=== PATIENT | male | born 1945 | race Caucasian/White ===

== ENCOUNTER → 2019-11-27 10:14 | Outpatient (BNVA) | payer OTHER, SELFPAY | PROVIDERS: Visit Provider Specialist | DX: M25.552 Pain in left hip (principal) | CPT/HCPCS: 73502 ==

== ENCOUNTER 2020-01-19 09:44 | Outpatient (CLI) | payer OTHER, SELFPAY ==
--- NOTE | 2020-01-19 09:51 | MR_ITS ---
WS: [id number] MRI LUMBAR SPINE NONCONTRAST HISTORY: BACK PAIN COMPARISON: None available. TECHNIQUE: Sagittal and axial multisequence imaging is submitted. Mild increase in the cervical lordosis and thoracic kyphosis. Mild straightening of the normal lumbar lordosis. Prior fusion hardware at L5-S1. 5 mm retrolisthesis of L2 and L3. There is very mild anterior wedging with no marrow edema involving L2 and L3. Mild disc desiccation throughout. Most significant at L5-S1. Conus terminates normally at L1. L1-L2: Central disc osteophyte encroaching upon the ventral thecal sac. Osteophytes extend into the f oramen with mild bilateral foraminal stenosis. L2-L3: Diffuse moderate annular disc bulging and osteophytic ridging. Central disc osteophyte complex encroaching upon the ventral thecal sac resulting in mild central, bilateral foraminal subarticular stenosis. L3-L4: Diffuse annular disc bulging with osteophytic ridging and facet arthritis. Disc osteophyte dis ease causing severe LEFT subarticular recess and foraminal stenosis. Complete effacement of fat in th e foramen. There is disc osteophyte encroaching upon the LEFT L4 lateral recess and nerve root. Moder ate narrowing of the RIGHT foramen and central canal. L4-L5: Mild annular disc bulging and osteophytic ridging. Facet joint arthritis with mild bilateral f oraminal narrowing. Large posterior laminectomy defects. Nerve roots are becoming clumped within the periphery of the thecal sac. L5-S1: Mild osteophytic ridging. Hypertrophic bone formation encroaches into the subarticular recesse s and foramina. This is better visualized on the CT performed on the same day. Large posterior armond ctomy defects. LEFT renal cysts. MR/MR lumbar spine wo con* [id number] IMPRESSION: 1. Moderate L3-4 central stenosis with severe LEFT inferior lateral recess, alston barticular and foraminal stenosis due to combination of disc disease, osteophyt es and facet disease. Moderate RIGHT foraminal stenosis. 2. Posterior lumbar fusion at L5-S1 with large laminectomy defects at L4-5 and L5-S1. 3. Hypertrophic bone at L5-S1 causing significant bilateral subarticular and f oraminal stenosis. 4. Moderate bilateral foraminal stenosis at L4-5.
--- NOTE | 2020-01-19 10:30 | CT_ITS ---
WS: [id number] CT LUMBAR SPINE, noncontrast. HISTORY: lumbar stenosis with neurogenic claudication ( M48.062) TECHNIQUE: Contiguous 2.5 mm axial imaging are performed. Sagittal and coronal reformats are submitte d and reviewed. All CT scans at [facility] use at least one of these dose optimization te chniques: automated exposure control; mA and/or kV adjustment per patient size (includes targeted exa ms where dose is matched to clinical indication); or iterative reconstruction. IV contrast: None DLP: 2083.34 mGycm COMPARISON: None available. Straightening of the normal lumbar lordosis. L1 and L2 retrolisthesis by 3 mm. L3 retrolisthesis by 4 .5 mm. Mild chronic anterior wedging of L2 and L3 by 20%. Prior lumbar spine fusion at L5-S1. Laminec jorge defects at L4-5 and L5-S1. Fusion of the bone graft surrounding the facet joints at L4 and L5. L1-2: Diffuse osteophytic ridging. Mild annular disc bulging. Osteophytes encroach upon the ventral t hecal sac. Mild osteophyte encroachment into the lateral recesses. No severe stenosis. L2-3: Diffuse osteophytic ridging with encroachment upon the ventral thecal sac. Flattening of the ve ntral thecal sac with encroachment into the lateral recesses. Mild central and foraminal stenosis. L3-4: Diffuse osteophytic ridging and annular disc bulging. Facet and ligamentum flavum hypertrophy. Moderate central and subarticular recess stenosis. Moderate to severe bilateral foraminal stenosis. L4-5: Diffuse annular disc bulging. Mild foraminal stenosis. L5-S1: Osteophytic ridging and facet arthritis. Osteophytes encroach into the subarticular recesses a nd foramina bilaterally. Part of this bone formation is related to the fusion bone graft. Moderate to severe bilateral foraminal stenosis due to hypertrophic bone formation. Mild atherosclerosis aorta. The entire aorta is not visualized anteriorly. CT/CT lumbar spine wo con* [id number] IMPRESSION: 1. Status post posterior lumbar fusion at L5-S1 with large posterior laminecto my defects at L4-5 and L5-S1. 2. Hypertrophic bone formation with significant encroachment into the lateral recesses, subarticular foramen and foramen at L5-S1. 3. Moderate to severe bilateral foraminal stenosis with moderate central and s ubarticular recess stenosis at L3-4. 4. Mild central and foraminal stenosis at L2-3. 5. Mild chronic anterior compression fractures at L2 and L3 by 20%.
== END 2020-01-19 09:45 | disposition home or self-care (01) ==
PROVIDERS: PCP Nurse Practitioner; Visit Provider Orthopaedic Surgery
DX: M48.062 Spinal stenosis, lumbar region with neurogenic claudication (principal); M54.5 Low back pain; S32.020A Wedge compression fracture of second lumbar vertebra, initial encounter for closed fracture; S32.030A Wedge compression fracture of third lumbar vertebra, initial encounter for closed fracture; X58.XXXA Exposure to other specified factors, initial encounter; M48.061 Spinal stenosis, lumbar region without neurogenic claudication; M96.1 Postlaminectomy syndrome, not elsewhere classified
CPT/HCPCS: 72131; 72148

== ENCOUNTER 2020-02-20 12:27 | Outpatient (CLI) | payer OTHER, MEDICARE, SELFPAY ==
--- NOTE | 2020-02-20 14:30 | USCV_ITS ---
Yomi Julian Age: 74 Gender: M : 1945 Exam Date: 02/20/2020 12:55 Ordering Phys: Evelin Lyon MD ([email or web address]) Technologist: Edgardo Echavarria [place] [facility] [place]: PRE OP BP: 149 / 90 HR: 75 Rhythm: PVCs Technical Quality: Good MEASUREMENTS (Male / Female) Normal Values 2D ECHO LV Diastolic Diameter PLAX 4.9 cm 4.2 - 5.9 / 3.9 - 5.3 cm LV Systolic Diameter PLAX 2.7 cm IVS Diastolic Thickness 0.9 cm 0.6 - 1.0 / 0.6 - 0.9 cm IVS Systolic Thickness 1.5 cm LVPW Diastolic Thickness 1.2 cm 0.6 - 1.0 / 0.6 - 0.9 cm LVPW Systolic Thickness 1.5 cm LVOT Diameter 2.0 cm LV Ejection Fraction 2D Teich 74.7 % LV Ejection Fraction MOD 2C 62.4 % LV Ejection Fraction 2C AL 62.1 % LA Diameter 3.9 cm LA Width 4.0 cm LA Height 5.0 cm RA Width 3.4 cm RA Height 4.6 cm Aorta at Sinotubular Diameter 3.1 cm M-MODE LV Diastolic Diameter MM 5.1 cm 4.2 - 5.9 / 3.9 - 5.3 cm LV Systolic Diameter MM 3.4 cm LV Ejection Fraction MM Teich 61.8 % IVS Diastolic Thickness MM 1.3 cm 0.6 - 1.0 / 0.6 - 0.9 cm IVS Systolic Thickness MM 2.0 cm LVPW Diastolic Thickness MM 1.3 cm 0.6 - 1.0 / 0.6 - 0.9 cm LVPW Systolic Thickness MM 1.8 cm RV Diastolic Diameter MM 1.8 cm Aortic Annulus Diameter 4.1 cm LA Ao Ratio MM 1.0 MV E Point Septal Separation 0.5 cm DOPPLER AV Peak Velocity 126.0 cm/s LVOT Peak Velocity 99.0 cm/s AV Area Cont Eq vti 2.8 cm squared AV Area Cont Eq pk 2.5 cm squared MV Area PHT 5.0 cm squared Mitral E to A Ratio 0.6 MV E' Velocity 33.0 cm/s Mitral E to MV E' Ratio 8.3 Mitral E to LV E' Lateral Ratio 6.5 Mitral E to LV E' Septal Ratio 11.4 TR Peak Velocity 218.3 cm/s TR Peak Gradient 19.1 mmHg TV Peak E Velocity 76.0 cm/s Right Atrial Pressure 3.0 mmHg Pulmonary Artery Systolic Pressu 22.1 mmHg PV Peak Velocity 129.0 cm/s FINDINGS Left Ventricle Normal left ventricular cavity size. Normal left ventricular wall thickness. Normal left ventricular systolic function. Left ventricular ejection fraction is estimated at 60-65 %. No regional wall motion abnormalities. Normal diastolic function. Right Ventricle Normal right ventricular size and systolic function. Right ventricular systolic pressure 30 mmHg. Right Atrium Normal right atrial size. Left Atrium Normal left atrial size. Mitral Valve Mildly thickened mitral valve. No mitral valve stenosis. Trace mitral valve regurgitation. Aortic Valve Aortic valve not well visualized. No aortic valve stenosis. No aortic valve regurgitation. Tricuspid Valve Structurally normal tricuspid valve. Trace tricuspid valve regurgitation. Pulmonic Valve Structurally normal pulmonic valve. No pulmonary valve stenosis. Trace pulmonary valve regurgitation. Pericardium No pericardial effusion. Aorta Normal-sized aortic root. Ascending aorta mildly dilated measured at 38 mm anteroposteriorly. Normal-sized inferior vena cava. CONCLUSIONS 1. Normal left ventricular cavity size, wall thickness and systolic function. Left ventricular ejection fraction is estimated at 60-65%. No regional wall motion abnormalities. Normal diastolic function. 2. Normal right ventricular size and systolic function. 3. Normal pulmonary artery pressure. 4. No significant valvular abnormality. 5. Ascending aorta mildly dilated measured at 38 mm anteroposteriorly. 6. No prior similar studies to compare. Evelin Lyon MD (Electronically Signed) Final Date: 24 February 2020 17:10 S
== END 2020-02-20 12:28 | disposition home or self-care (01) ==
PROVIDERS: PCP Nurse Practitioner; Visit Provider Internal Medicine Cardiovascular Disease
DX: Z01.810 Encounter for preprocedural cardiovascular examination (principal); I77.819 Aortic ectasia, unspecified site; I08.1 Rheumatic disorders of both mitral and tricuspid valves
CPT/HCPCS: 93306

== ENCOUNTER → 2020-04-07 09:08 | Outpatient (BNVA) | payer OTHER, SELFPAY | PROVIDERS: PCP Nurse Practitioner; Visit Provider Orthopaedic Surgery | DX: Z01.812 Encounter for preprocedural laboratory examination (principal); Z20.828 Contact with and (suspected) exposure to other viral communicable diseases | CPT/HCPCS: 87635 ==

== ENCOUNTER → 2020-05-10 09:11 | Outpatient (BNVA) | payer OTHER, SELFPAY | PROVIDERS: PCP Nurse Practitioner; Visit Provider Orthopaedic Surgery | DX: Z01.812 Encounter for preprocedural laboratory examination (principal); M48.062 Spinal stenosis, lumbar region with neurogenic claudication; M54.16 Radiculopathy, lumbar region | CPT/HCPCS: 87635 ==

== ENCOUNTER 2020-05-17 07:09 | Day surgery (SDC) | payer OTHER, SELFPAY ==
[2020-05-14 09:11] VITALS: BMI 27.1
[2020-05-17] VITALS (10 sets, daily range): BP systolic 139–169; BP diastolic 72–89; PULSE 60–111; RESP 12–26; TEMP 36.1–36.6; O2SAT 94–99
--- NOTE | 2020-05-17 | XR_ITS ---
WS: [id number] C-ARM RADIOGRAPHS LUMBAR SPINE; 3 IMAGES HISTORY: Decompression of L3/L4 COMPARISON: None available. Posterior lumbar fusion at L5-S1. Additional marker indicating the posterior L3 vertebral body. XR/XR lumbar spine 2-3V* [id number] IMPRESSION: Decompression surgery at L3-4 and posterior lumbar fusion at L5-S1.
--- NOTE | 2020-05-17 07:29 | SC_ITS ---
Procedure Done: Bilateral L3/4 laminectomy with partial facetectomies 16.8 seconds of fluoroscopic guidance, for a cumulative dose of 11.43 mGy, was provided to Dr. Saez by the radiology department. C-arm images of the lumbar spine were saved for the patient's permanent record. [facility] DIVISIONMiranda
[2020-05-17] MEDS: sodium chloride 0.9% 1,000 ML 30 ML IV (07:54)
[2020-05-17] MEDS: gabapentin 300 mg Capsule PO (07:54)
--- NOTE | 2020-05-17 08:06 | P.HP_ITS ---
Providers/Chief Complaint Primary Care Provider: JUANITO Alonzo Chief Complaint: bilateral decompression of L3/4 62030, [id number] History of Present Illness Yomi Julian is a 74 year old male established of back pain that started in 2007. Patient states he once was able to walk 2 miles a day but can longer do so any more due to pain. He states that injections are a waste of time. Onset: years Duration: years Characteristics: dull ache Severity: 06/26 Location: low back Radiating symptoms: numbness to front of right leg and foot, as well as numbness to left foot Aggravating factors: walking, standing, resting Alleviating factors: rest sleeping Neuro deficits: denies, incontinence of bowel/bladder, saddle anesthesia. Prior tx: injections-did not work, physical therapy Review of Systems ENMT: Denies: enlarged tonsils All/Imm: Denies: acute wheezing Medications/Allergies Home Medications Medication Instructions Recorded Confirmed Last Taken Type aspirin 81 mg tablet,delayed 81 mg PO DAILY 11/27/19 05/17/20 05/12/20 History release ibuprofen 200 mg tablet 200 mg PO Q6H PRN 11/27/19 05/17/20 Unknown History lisinopril 40 mg tablet 40 mg PO DAILY 11/27/19 05/17/20 05/16/20 History amlodipine 5 mg tablet 5 mg PO DAILY #90 tab 04/20/20 05/17/20 05/16/20 Rx hydrochlorothiazide 25 mg tablet 50 mg PO DAILY tab 04/20/20 05/17/20 05/17/20 History Allergies Allergy/AdvReac Type Severity Reaction Status Date / Time No Known Allergies Allergy Verified 05/14/20 09:04 PFSH Acute PFSH: Medical History Low back pain Primary hypertension Surgical History History of back surgery Social History Smoking and tobacco status: never smoked Alcohol intake: never Vitals/I&O/Wt Last Vital Signs Temp 97 F L 05/17/20 07:31 Pulse 111 H 05/17/20 07:31 Resp 18 05/17/20 07:31 BP 152/76 05/17/20 07:31 Pulse Ox 96 05/17/20 07:31 Physical Exam Narrative: EXAM NARRATIVE: EXAM NARRATIVE: CONSTITUTIONAL: This is a normal appearing in no acute distress. PSYCH: The patient is oriented to person, place and time. SKIN: The skin is of normal color and texture. NEURO: Patient is neurovascular!y intact. A&P Additional A&P Information L3/4 stenosis MIS L3/4 decompression Attestations Medical Necessity Statement*: failed conservative therapy Coding Level of Care Code Acute Brand Development Manager for Alex De La Vega
--- NOTE | 2020-05-17 08:14 | W.PM.OPSUD ---
Surgery/Procedure H&P Update DATE OF PROCEDURE: May 17, 2020 DATE H&P PERFORMED: 05/17/20 H&P UPDATE INFORMATION: I have reviewed H&P completed within last 30 days and I have examined patient prior to procedure PREOP DIAGNOSIS: lumbar stenosis PLANNED PROCEDURE: Operation Date: 05/17/20 08:45 Proposed Procedures p bilateral decompression of L3/4 28099, 44646 [id number] M48.062(Not Applicable) - Yeison Saez DO
--- NOTE | 2020-05-17 08:55 | ANES.PREANE2 ---
Pre-Anesthetic Assessment Pre-Anesthetic Assessment: Height/Weight: Height 1.83 m Weight 90.718 kg Temp Pulse Resp BP Pulse Ox 97 F L 111 H 18 152/76 96 05/17/20 07:31 05/17/20 07:31 05/17/20 07:31 05/17/20 07:31 05/17/20 07:31 Preop Diagnosis: lumbar stenosis Proposed Procedure: Operation Date: 05/17/20 08:45 Proposed Procedures p bilateral decompression of L3/4 26563, 82720 40504 [id number] M48.062(Not Applicable) - Yeison Saez DO Familial anesthetic complications: None Was Beta Elvis taken within 24 hours: N/A Last intake: NPO > 8 hrs Social: Social History: No alcohol and No tobacco Comment: former smoker Exam: Pre-Anes Outpt Exam: alert, oriented x 3, clear to auscultation bilaterally and regular rate & rhythm Airway: Cervical ROM: WNL MP: 3 Dentition: Full CV/HEM: CV/HEM: HTN Comments: bradycardia - stopped 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 Anesthetic Plan: ASA status: 2 Anesthesia: General Risk of > 500 ml blood loss (7ml/kg in children): No Meds/Allergies Current Medications: Current Medications Generic Name Dose Route Start Last Admin Trade Name Freq PRN Reason Stop Dose Admin Sodium Chloride 1,000 mls @ 30 ml s/hr 05/17/20 07:30 05/17/20 07:54 Sodium Chloride 0.9% IV 05/18/20 07:29 30 mls/hr .Q24H ANTOINE Administration PFSH Anesthesia PFSH: Medical History Low back pain Primary hypertension Surgical History History of back surgery Social History Smoking and tobacco status: never smoked Alcohol intake: never Data Anesthesia Cardiac Studies: No Data to Display
--- NOTE | 2020-05-17 09:05 | P.PCN_ITS ---
PACU note PACU note: VSS, Good respiratory effort, report to WOOD BUCKER Post-Anesthesia Exam: awake
--- NOTE | 2020-05-17 09:05 | PM.PACU ---
PACU note PACU note: VSS, Good respiratory effort, report to HEEL MOLDER Post-Anesthesia Exam: awake
--- NOTE | 2020-05-17 11:03 | PM.OP ---
Operative Report Date of procedure: May 17, 2020 Pre-op Diagnosis: lumbar stenosis Post-op diagnosis: same Procedure Done: Bilateral L3/4 laminectomy with partial facetectomies Surgeon: Nathalie Durant Anesthesia: General Estimated blood loss (mL): 5 Condition: stable Disposition: PACU Procedure: Patient is brought to the operative suite. After undergoing anesthesia they are placed in the supine position. All areas of impingement are well padded. Patient is then prepped and draped in the normal sterile fashion. A skin incision is made over the L3-4 level. This is confirmed under c-arm guidance. A series of dilators are passed and the tubular retractor is docked on the L3 lamina. A bovie is used to clear the soft tissue off the lamina and the L 3/4 facet joint. A high speed alis is then used to perform the laminectomy and take down the medial aspect of the L 3/4 facet joint. A kerrison rongeure was then used to take down the remaining lamina and smooth the edged of the laminectomy up to the point where the ligamentum flavum attaches. Attention was then brought to the medial aspect of the facet joint. The remaining medial aspect of the superior and inferior aspect of the facet joint were taken down with the kerrison from the pedicle of L3 to L 4. The facet joint had significant hypertrophy. Attention was then brought to the Ligamentum Flavum. The ligament was taken down from the lamina of L3 to L4 and out medially to the remaining facet joint. The ligament was thick. The dura was then exposed. The dura was in good repair. The L3 nerve was then traced with a curette out the L3/4 foramen and found to be adequately decompressed. The L4 nerve was traced with a curette around the L4 pedicle. The lateral recess was opened with a kerrison helping to further decompress the L4 nerve. The tubular retractor was then tilted to the contralateral side. The bovie was used to take down the soft tissue on the spinous process. The high speed alis was used to take down the spinous process and then the contralateral lamina of L3. The kerrison rongeur was used to take down the remaining lamina to the point where the ligamentum flavum attached and the ligamentum flavum was taken down from L3 to L4. The kerrison rongeur was then used to reach across and take down the medial aspect of the contralateral L3/4 facet joint.The currete was used to trace the contralateral L3 nerve out the L3/4 foramen to make sure it was decompressed adequatesly and the L4 was traced around the L4 pedicle. The lateral recess was opened further with the kerrison to ensure the L4 is adequately decompressed. Wound is then irrigated copiously with saline and surgiflo is used to stop any bleeding. The tubular retractor is removed and the wound is closed with vicryl and monocryl suture. Glue is then used to protect the wound. A sterile dressing is then placed. Patient was then placed in the supine position and transferred to the PACU in stable condition.
--- NOTE | 2020-05-17 11:34 | ECG_ITS ---
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 Measurements Intervals [place] Rate: 72 P: 71 ME: 189 QRS: -22 QRSD: 107 T: 86 QT: 415 QTc: 455 Interpretive Statements SINUS RHYTHM BORDERLINE LEFT AXIS DEVIATION [QRS AXIS < -20] NONSPECIFIC ST & T-WAVE ABNORMALITY No previous ECG available for comparison Electronically Signed On 05-17-2020 18:52:43 SLIDE FASTENERS INSPECTOR by Robert Cali M.D. [email or web address] county general [email or web address] Orthopedic Technologiesselect medical cleveland clinic rehabilitation hospital, [id number]
--- NOTE | 2020-05-17 18:05 | ANE.PACU2 ---
Inpatient post-anesthesia follow up: Airway intact: Yes Vital signs: Temperature 97.8 F Pulse Rate 68 Respiratory Rate 18 Blood Pressure 146/72 Pulse Oximetry 97 Oxygen Delivery Me thod Room Air Oxygen Flow Rate 8 Fraction of Inspir ed Oxygen Hydration adequate: Yes Nausea and vomiting: No Pain level: 3 Mental status: Baseline
== END 2020-05-17 12:51 | disposition home or self-care (01) ==
PROVIDERS: PCP Nurse Practitioner; Visit Provider Orthopaedic Surgery
PROC: (CPT 63005; principal; 2020-05-17 08:30)
DX: M48.061 Spinal stenosis, lumbar region without neurogenic claudication (principal); I10 Essential (primary) hypertension; Z87.891 Personal history of nicotine dependence; Z79.82 Long term (current) use of aspirin
CPT/HCPCS: 63047; 72100; 76000; 93005; 96365; J0690; J1100; J2250; J2405; J2704; J2710; J3010; J3490; J7030

== ENCOUNTER 2020-05-18 09:11 | Emergency (ER) | payer OTHER, BC, SELFPAY ==
[2020-05-18 09:15] VITALS: BP 171/100; PULSE 84; RESP 18; TEMP 36.5; O2SAT 99; BMI 27.3
--- NOTE | 2020-05-18 09:32 | W.ED.MALEGU ---
HPI - Male Genitourinary General: Chief complaint: Urogenital-Male Stated complaint: Unable to Urinate Time Seen by Provider: 05/18/20 09:16 History of Present Illness: HPI Narrative: 74-year-old male presents ER with complaints of urinary retention. He had a lumbar laminectomy yesterday and since then states he is not been able to urinate is gotten exquisitely uncomfortable no fever sweats or chills. No other complaints at this time. MD Complaint: other (.Recent surgery.) Onset (ago): hour(s) Duration: constant Location: abdomen Radiation: abdomen Severity: severe Quality: aching Relieving factors: none Exacerbating factors: palpation and movement Associated symptoms: Reports urinary retention; Deny discharge, dysuria, fevers/chills, hematuria, nausea, rash, swelling, urinary incontinence, mass or vomiting Review of Systems Const: Denies: fever(s), chills, body aches, change in appetite, fatigue or malaise ENMT: Denies: throat pain, ear or mastoid pain, nasal discharge or nasal congestion Card: Denies: chest pain, edema, dyspnea on exertion or orthopnea Resp: Denies: dyspnea, productive cough or non-productive cough GI: Denies: nausea or vomiting : Denies: dysuria, urinary incontinence or hematuria Skin/Breast: Denies: rash or pruritus PFSH ED PFSH: Medical History Low back pain Primary hypertension Surgical History History of back surgery Social History Smoking and tobacco status: never smoked Alcohol intake: never Physical Exam Const: COMMON NORMALS: no acute distress GENERAL APPEARANCE: cooperative and comfortable ORIENTATION/CONSCIOUSNESS: Yes awake, Yes oriented to person, Yes oriented to place and Yes oriented to time HENMT: COMMON NORMALS: normocephalic, atraumatic and hearing grossly normal bilaterally HEAD & SCALP: normocephalic and atraumatic Neck/C-Spine: COMMON NORMALS: no JVD Resp: COMMON NORMALS: normal respiratory effort, No retractions, No use of accessory muscles and clear to auscultation bilaterally AUSCULTATION: clear to auscultation bilaterally Cardio: COMMON NORMALS: no JVD, regular rate, regular rhythm and No murmurs present (Cardio) RATE: regular rate RHYTHM: regular rhythm GI: COMMON NORMALS: Soft to palpation and No hepatosplenomegaly present AUSCULTATION: Yes normoactive bowel sounds PALPATION: Yes Soft to palpation, No Guarding due to palpation present (GI) and Yes No hepatosplenomegaly present OTHER: Bladder palpable just below the umbilicus. Exquisitely tender no guarding or rebound Extremity: COMMON NORMALS: normal to inspection, capillary refill normal, no clubbing, cyanosis or edema, no calf tenderness and no pedal edema Neuro: SENSORIUM/ORIENTATION: Yes oriented to person, Yes oriented to place and Yes oriented to time Skin: COMMON NORMALS: no rashes or lesions noted GENERAL SKIN EXAM: no rashes or lesions noted Course Vital Signs: Vital signs: Vital Signs Temperature 97.7 F 05/18/20 09:15 Pulse Rate 56 L 05/18/20 11:12 Respiratory Rate 16 05/18/20 11:12 Blood Pressure 130/72 05/18/20 11:12 Pulse Oximetry 98 05/18/20 11:12 MDM - Male MDM Narrative: Medical decision making narrative: Patient had significant urinary output after placement of catheter will discharge home with a leg bag start tamsulosin follow-up with Lab Data: Labs: Lab Results 05/18/20 05/18/20 05/18/20 Range/Units 03:02 03:02 09:51 WBC 11.5 H (4.0-10.0) 10^3/ uL RBC 5.09 (4.1-5.3) 10^6/u L Hgb 15.5 (11.7-16.6) g/dL Hct 46.5 (42.0-52.0) % MCV 91.4 (80-94) fL MCH 30.5 (28.0-34.0) pg MCHC 33.3 (30.0-36.0) g/dL RDW 13.1 (12.1-15.1) % Plt Count 224 (130-400) 10^3/c mm MPV 9.8 (7.4-10.4) fL Neut % (Auto) 75.1 % Lymph % (Auto) 15.9 % Bond % (Auto) 8.1 % Eos % (Auto) 0.3 % Baso % (Auto) 0.3 % Neut # (Auto) 8.66 H (1.8-7.7) 10^3/u L Lymph # (Auto) 1.8 (0.8-4.8) 10^3/u L Bond # (Auto) 0.9 (0.2-0.9) 10^3/u L Eos # (Auto) 0.0 (0.0-0.8) 10^3/u L Baso # (Auto) 0.0 (0.0-0.1) 10^3/u L Nucleated RBC % (a uto) 0 % Nucleated RBCs # 0.0 /100WBC Sodium 139 (136-145) mmol/L Potassium 3.2 L (3.5-5.1) mmol/L Chloride 101 (98-107) mmol/L Carbon Dioxide 27 (22-29) mmol/L Anion Gap 14.2 (5-19) BUN 22 (8-23) mg/dL Creatinine 0.7 (0.7-1.2) mg/dL GFR Calculation Not Reportable Glucose 105 (65-115) mg/dL Calculated Osmolal ity 292 (285-295) mOsm/k g Calcium 9.6 (8.5-10.5) mg/dL Urine Color Yellow (Yellow) Urine Appearance Clear (CLEAR) Urine pH 5 (5-7) Ur Specific Gravit y 1.015 (1.005-1.030) Urine Protein Neg (Negative) Urine Glucose (UA) Trace H (Normal) Urine Ketones Negative (Negative) Urine Blood 2+ H (Negative) Urine Nitrate Negative (Negative) Urine Bilirubin Neg (Negative) Urine Urobilinogen Norm (Negative) mg/dL Ur Leukocyte Yoana ase Negative (Negative) Urine RBC 25-40 H (0-2) /hpf Urine WBC Rare (0-5) /hpf Ur Squamous Epith Cells Rare (0-5) /hpf Amorphous Sediment Not Reportable Urine Bacteria Trace (NONE) /hpf Urine Mucus 1+ /hpf Discharge Plan Discharge Patient Disposition: Home Clinical Impression: Acute urinary retention, Benign prostatic hyperplasia Condition: Stable Prescriptions: New tamsulosin 0.4 mg capsule 0.4 mg PO DAILY Qty: 30 RF: 0 No Action lisinopril 40 mg tablet 40 mg PO DAILY RF: 0 aspirin 81 mg tablet,delayed release (DR/EC) 81 mg PO DAILY RF: 0 ibuprofen 200 mg tablet 200 mg PO Q6H PRN (Reason: Pain) RF: 0 hydrochlorothiazide 25 mg tablet 50 mg PO DAILY RF: 0 amlodipine 5 mg tablet 5 mg PO DAILY Qty: 90 RF: 1 hydrocodone-acetaminophen 5-325 mg tablet 1 - 2 tab PO .Q4-6H Qty: 40 RF: 0 Discharge Orders: Discharge ED (Routine); Ordered 05/18/20 Ordered By: Xavier Aleman Referrals: Eri Blair FNP [Primary Care Provider] - Discharge Diet: Usual diet Discharge Activity: Resume usual activity Patient Instructions: Urinary Retention in Men (ED), Benign Prostatic Hypertrophy (ED), Jones Catheter Placement and Care (ED), Urinary Leg Bag (GEN), Opioid Safety Activity Restrictions/Additional Instructions: Case management will call with a referral to urology. Coding Level of Care Code ED Hazmat Cdl A Driver for Alex De La Vega
[2020-05-18 10:10] VITALS: BP 115/68; PULSE 65; RESP 17; O2SAT 98
[2020-05-18 10:14] LABS: Basophils % 0.3 %; Eosinophils % 0.3 %; Hematocrit 46.5 % (42.0-52.0); Hemoglobin 15.5 g/dL (11.7-16.6); Lymphocytes # 1.8 10^3/uL (0.8-4.8); Lymphocytes % 15.9 %; Mean Corpuscular HGB Conc 33.3 g/dL (30.0-36.0); Mean Corpuscular Hemoglobin 30.5 pg (28.0-34.0); Mean Corpuscular Volume 91.4 fL (80-94); Mean Platelet Volume 9.8 fL (7.4-10.4); Monocytes # 0.9 10^3/uL (0.2-0.9); Monocytes % 8.1 %; Neutrophils # 8.66 10^3/uL (1.8-7.7); Neutrophils % 75.1 %; Nucleated Red Blood Cells % 0 %; Platelet Count 224 10^3/cmm (130-400); Red Blood Count 5.09 10^6/uL (4.1-5.3); Red Cell Distribution Width 13.1 % (12.1-15.1); White Blood Count 11.5 10^3/uL (4.0-10.0)
[2020-05-18 10:38] LABS: Anion Gap 14.2 (5-19); Blood Urea Nitrogen 22 mg/dL (8-23); Calcium 9.6 mg/dL (8.5-10.5); Carbon Dioxide 27 mmol/L (22-29); Chloride 101 mmol/L (98-107); Glucose 105 mg/dL (65-115); Osmolality Calculated 292 mOsm/kg (285-295); Potassium 3.2 mmol/L (3.5-5.1); Sodium 139 mmol/L (136-145)
[2020-05-18 10:42] LABS: Urine Appearance Clear (CLEAR); Urine Color Yellow (Yellow); pH Urine 5 (5-7)
[2020-05-18 10:43] LABS: Add Urine Microscopic? YES; Bilirubin Urine Neg (Negative); Blood Urine 2+ (Negative); Glucose Urine UA Trace (Normal); Ketones Urine Negative (Negative); Leukocyte Esterase Urine Negative (Negative); Nitrate Urine Negative (Negative); Protein Urine Neg (Negative); Specific Gravity, Urine 1.015 (1.005-1.030); Urobilinogen Urine Norm (Negative)
[2020-05-18 10:54] LABS: RBC Urine 25-40 /hpf (0-2); Squamous Epithelial Cell Urine RARE /hpf (0-5); WBC Urine RARE /hpf (0-5)
[2020-05-18 10:55] LABS: Add Urine Culture? Yes; Bacteria Urine TRACE /hpf; Mucus Urine 1+ /hpf
[2020-05-18 11:12] VITALS: BP 130/72; PULSE 56; RESP 16; O2SAT 98
--- NOTE | 2020-05-18 11:59 | PC.NURSE ---
Pt was discharged home with a leg bag.
--- NOTE | 2020-05-24 09:27 | DCPLANNER ---
Addendum entered by Ayesha Sawyer 05/24/20 09:29: Patient has [employer] insurance, correctional casework specialist sent patients information to June with [facility] patients information over a secure email, so that the authorization process could be started. Original Note: manager project had message to schedule a follow up appointment for patient with Dr. Sears. manager project called the office of Dr. Sears, spoke with Tess, gave clinic patients information. manager project was told that patients information would be printed and reviewed. Clinic will call patient with appointment information.
--- NOTE | 2020-06-09 15:44 | DCPLANNER ---
Patient had a follow up appointment scheduled for 05.27.[address] Sears - patient did attend appointment.
== END 2020-05-18 12:00 | disposition home or self-care (01) ==
PROVIDERS: Emergency Provider Family Medicine; PCP Nurse Practitioner
DX: N40.1 Benign prostatic hyperplasia with lower urinary tract symptoms (principal); R33.8 Other retention of urine; Z79.82 Long term (current) use of aspirin; I10 Essential (primary) hypertension
CPT/HCPCS: 51702; 80048; 81001; 85025; 87086; 99282

== ENCOUNTER → 2020-06-09 10:03 | Outpatient (BNVA) | payer OTHER, SELFPAY | PROVIDERS: PCP Nurse Practitioner; Visit Provider Nurse Practitioner Family | DX: N40.1 Benign prostatic hyperplasia with lower urinary tract symptoms (principal) | CPT/HCPCS: 81003 ==

== ENCOUNTER → 2020-07-06 08:58 | Outpatient (BNVA) | payer OTHER, SELFPAY | PROVIDERS: PCP Nurse Practitioner; Visit Provider Urology | DX: N40.1 Benign prostatic hyperplasia with lower urinary tract symptoms (principal); R82.81 Pyuria | CPT/HCPCS: 81003 ==

== ENCOUNTER → 2020-10-04 09:32 | Outpatient (BNVA) | payer OTHER, SELFPAY | PROVIDERS: PCP Nurse Practitioner; Visit Provider Urology | DX: N40.1 Benign prostatic hyperplasia with lower urinary tract symptoms (principal) | CPT/HCPCS: 81003 ==

== ENCOUNTER 2021-01-17 06:51 | Outpatient (CLI) | payer OTHER, SELFPAY ==
[2021-01-17 07:00] VITALS: BMI 28.5
--- NOTE | 2021-01-17 07:09 | ECG_ITS ---
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 Interpretive Statements NAME OF STUDY: LEXISCAN SESTAMIBI STRESS TEST INDICATION: Shortness of breath on exertion, chest pain PROCEDURE: At the baseline, the blood pressure was 154/85 mmHg with a heart rate of 49 bpm. The electrocardiogram showed sinus bradycardia, normal axis with isolated PVCs. Possible old anteroseptal infarct. The Lexiscan was infused over a period of 20 seconds. A total of 0.4 milligrams of Lexiscan was infused. The stress phase was continued for a total of 5 minutes. Heart rate at the end of the stress phase was 67 bpm with a blood pressure of 139/78 mmHg. The EKG at the peak infusion revealed sinus rhythm with no significant ST-T wave changes. Frequent isolated PVCs noted during Lexiscan infusion.. The study was terminated due to protocol completion. Sestamibi was injected 20 seconds after the Lexiscan infusion. Blood pressure at the end of the recovery phase was 148/74 mmHg, oxygen saturation 96% with a heart rate of 73 beats per minute. PVC couplets and frequent isolated PVCs noted in recovery. CONCLUSION: 1. No significant EKG changes with the LexiScan infusion. 2. No LexiScan induced chest pain. Frequent isolated PVCs and PVC couplets noted during infusion. 3. Normal blood pressure and heart rate response. 4. Sestamibi/sestamibi perfusion scan pending; see separate report. Electronically Signed On 01-24-2021 14:32:01 CATCHER FILTER TIP by Evelin Lyon M.D. [email or web address]
--- NOTE | 2021-01-17 07:09 | NMCV_ITS ---
NM eduardo perf SPECT r/s* [id number] Yomi Julian Age: 75 Gender: M : 1945 Exam Date: 01/17/2021 07:33 Ordering Phys: Evelin Lyon MD ([email or web address]) Technologist: MONCHO Cardenas Exam Location: [facility] Indications: SHORTNESS OF BREATH STRESS TEST [facility] IMAGE PROTOCOL Rest/Stress 1 Lexiscan Day Radiopharmaceutical Dose (mCi) Administration Site Administered by Rest: Tc-99m 10.9 IV MONCHO [place] Sestamibi Stress:Tc-99m 32.8 IV MONCHO [place] Sestamijim Rest: 17-Jan-2021 60 Discovery 630 Stress: 17-Jan-2021 30 Discovery 630 0.4mg Lexiscan. Images obtained in supine and prone position. SPECT RESULTS Technical Quality: Excellent Raw Data Analysis: Normal Image Corrections: No attenuation or motion correction applied Summed Stress Score: 3 Summed Rest Score: 0 Summed Difference Score: 3 PERFUSION FINDINGS Small size perfusion abnormality of mild severity of mid inferolateral, apical inferior and apical lateral wall on stress images. FUNCTIONAL RESULTS (calculated via Gated SPECT) Stress Image LV EF (%): 65 Stress EDV (mL):137 TID: 1.01 Stress ESV (mL):48 FUNCTIONAL FINDINGS: The left ventricle is normal in size. Transient Ischemia Dilatation of 1. There is normal left ventricular systolic function. The left ventricular ejection fraction is normal with a value of 65%. There is normal left ventricular wall thickening with no regional wall motion abnormality. IMPRESSIONS 1. Small size reversible perfusion abnormality of mild severity of mid inferolateral, apical inferior and apical lateral darby. 2. This may represent small area of ischemia in circumflex artery territory. 3. Overall left ventricular systolic function is normal without regional wall motion abnormalities, LVEF=65%. 4. No prior similar studies to compare. Evelin Lyon MD (Electronically Signed) Final Date: 24 January 2021 14:25 S
[2021-01-17] MEDS: regadenoson 0.4 Mg/5 ml Syringe IVP (08:41)
[2021-01-17 08:51] VITALS: BP 148/74; PULSE 72
== END 2021-01-17 06:52 | disposition home or self-care (01) ==
LOC: CDL 06:53
PROVIDERS: PCP Nurse Practitioner; Visit Provider Internal Medicine Cardiovascular Disease
DX: R06.02 Shortness of breath (principal); R07.9 Chest pain, unspecified
CPT/HCPCS: 78452; 93017; A9500; J2785

== ENCOUNTER 2021-02-08 06:52 | Outpatient (CLI) | payer OTHER, BC, SELFPAY ==
--- NOTE | 2021-02-08 07:00 | XRR_ITS ---
PROCEDURE INFORMATION: Exam: XR Abdomen Exam date and time: 02/08/2021 7:00 AM Age: 75 years old Clinical indication: Condition or disease; Kidney or ureter condition; Calculus (stone) in kidney; Patient HX: Current kidney stone, causing pain. TECHNIQUE: Imaging protocol: XR of the abdomen. Views: Frontal supine view of the abdomen. 1 View. COMPARISON: DX Abdomen 1 view [id number] 12/30/2020 9:03 AM FINDINGS: Gastrointestinal tract: Normal. No bowel dilation. Vasculature: A 0.7 cm nonobstructing stone is again seen projecting over the right lower kidney shadow. Pelvic phleboliths noted. Bones/joints: Trace levocurvature of the lumbar spine is present. The patient is status post L5-S1 fusion. No evidence of hardware related complication. XR/XR KUB [id number] IMPRESSION: Unchanged right lower kidney nonobstructing stone. Radiation Dose CTDIVOL = (mGy): DLP = (mGy-cm)
== END 2021-02-08 06:53 | disposition home or self-care (01) ==
PROVIDERS: PCP Nurse Practitioner; Visit Provider Urology
DX: N20.0 Calculus of kidney (principal)
CPT/HCPCS: 74018; 81003

== ENCOUNTER 2021-03-09 08:46 | Outpatient (CLI) | payer OTHER, SELFPAY ==
--- NOTE | 2021-03-09 09:00 | CT_ITS ---
WS: [id number] CT ABDOMEN AND PELVIS NONCONTRAST HISTORY: RIGHT RENAL STONE TECHNIQUE: Imaging performed through the abdomen and pelvis. Coronal and sagittal reformats are submi tted. All CT scans at [facility] use at least one of these dose optimization techniques: auto mated exposure control; mA and/or kV adjustment per patient size (includes targeted exams where dose is matched to clinical indication); or iterative reconstruction. DLP: 1712.08 mGy.cm COMPARISON: None available. Lower thorax: Benign granuloma at the lingula. Normal size heart. No pericardial effusion. Small hiat al hernia. Liver: Normal size liver. Mild heterogeneity. No bile duct dilatation. There are a few scattered gran ulomata. Gallbladder: Normally distended gallbladder with an 18 mm calcification. No adjacent inflammation. Pancreas: Nonspecific calcification along the medial head of the pancreas. No bile duct dilatation. N o discrete mass Spleen: Granulomatous. Normal size. Adrenal glands: Normal. No mass. Right kidney: Mild perinephric stranding. Nonobstructing calcification measures 6 mm in the lower flaco e. No hydroureter. Left kidney: Mild perinephric stranding. No hydronephrosis. Nonobstructing 4 mm calcification in the upper pole. Low-attenuation nodule in the posterior mid LEFT kidney may be a cyst but cannot be tye cterized without IV contrast. No hydroureter. Aorta: Mild atherosclerosis aorta. No free fluid, intraperitoneal air or significant lymphadenopathy. GI tract: Normal appendix. No GI tract obstruction. Extensive diverticular disease beginning in the d escending and sigmoid colon. Mild narrowing of the lumen throughout the sigmoid. Abdominal wall: Negative. No hernia. Pelvis: Urinary bladder is moderately well distended. Enlarged lobulated prostate gland. Prostate precious sures 6.3 x 4.9 x 4.6 cm and contain central calcifications. There is a lobulated calcification in th e dependent portion of the LEFT urinary bladder maximum diameter 7.5 mm. This calcification is closel y associated with the LEFT ureter orifice. Not causing obstruction at this time. May have been recent ly extruded. Osseous structures: Osteopenia. Prior fusion at L5-S1. Very mild anterior wedging of L2 appears chron ic. No acute fracture. CT/CT kidney stone [id number] IMPRESSION: 1. No renal obstruction. 2. Nonobstructing renal calcifications. 3. Lobulated calcification measuring 7.5 mm in the LEFT urinary bladder closel y associated with the ureteral orifice but not causing an obstruction. 4. Enlarged prostate gland. Prostate measures 6.3 x 4.9 x 4.6 cm. 5. Extensive diverticulosis without diverticulitis in the descending and sigmo id colon. 6. Cholelithiasis without acute cholecystitis. 7. Small hiatal hernia. 8. No ascites.
== END 2021-03-09 08:47 | disposition home or self-care (01) ==
PROVIDERS: PCP Nurse Practitioner; Visit Provider Urology
DX: N20.0 Calculus of kidney (principal); M54.9 Dorsalgia, unspecified; K44.9 Diaphragmatic hernia without obstruction or gangrene; K80.20 Calculus of gallbladder without cholecystitis without obstruction; K57.30 Diverticulosis of large intestine without perforation or abscess without bleeding; N40.0 Benign prostatic hyperplasia without lower urinary tract symptoms
CPT/HCPCS: 74176; 81003; 87077; 87086; 87184

== ENCOUNTER → 2021-03-15 00:01 | Outpatient (BNVA) | payer OTHER, SELFPAY | PROVIDERS: PCP Nurse Practitioner; Visit Provider Urology | DX: N20.0 Calculus of kidney (principal) | CPT/HCPCS: 87635 ==

== ENCOUNTER 2021-03-21 05:47 | Day surgery (SDC) | payer OTHER, SELFPAY ==
[2021-03-17 12:54] VITALS: BMI 28.5
[2021-03-21] VITALS (13 sets, daily range): BP systolic 110–141; BP diastolic 57–78; PULSE 51–62; RESP 16–18; TEMP 36.4–36.8; O2SAT 94–99
--- NOTE | 2021-03-21 05:51 | XRR_ITS ---
PROCEDURE INFORMATION: Exam: XR Abdomen Exam date and time: 03/21/2021 5:51 AM Age: 75 years old Clinical indication: Screening exam; Other: Preop right eswl TECHNIQUE: Imaging protocol: XR of the abdomen. Views: Frontal supine view of the abdomen. 1 View. COMPARISON: CR XR KUB [id number] 02/08/2021 7:01 AM FINDINGS: Gastrointestinal tract: No dilated bowel loops identified to suggest obstruction. Bones/joints: Moderate degenerative changes of the lumbar spine. Status post posterior surgical fusion of L5-S1. Other findings: There is a 0.8 cm calcification overlying the expected region of the right kidney, consistent with a stone. This is similar to prior study. If additional or more detailed information is needed, an addendum can be generated on request. XR/XR KUB [id number] IMPRESSION: 1. There is a 0.8 cm calcification overlying the expected region of the right kidney, consistent with a stone. This is similar to prior study.
[2021-03-21] MEDS: sodium chloride 0.9% 1,000 ML 30 ML IV (06:48)
--- NOTE | 2021-03-21 06:49 | P.HPUD_ITS ---
Surgery/Procedure H&P Update DATE OF PROCEDURE: March 21, 2021 DATE H&P PERFORMED: 03/09/21 H&P UPDATE INFORMATION: I have reviewed H&P completed within last 30 days, I have examined patient prior to procedure, No changes to prior documentation and H&[place] is in [facility] [place] date indicated CHANGES TO PREVIOUS DOCUMENTATION: KUB is unchanged. Plan cystoscopy with bladder stone removal, stent and ESWL Questions answered. Proceed as scheduled PREOP DIAGNOSIS: Right lower pole stone Cystolithiasis PLANNED PROCEDURE: Operation Date: 03/21/21 07:00 Proposed Procedures p Cystoscopy [id number]/85955/N20.0(Not Applicable) - Gee Sears MD s ESWL(Right) - Gee Sears MD s Stone Fragmentation(Not Applicable) - Gee Sears MD
--- NOTE | 2021-03-21 06:54 | P.OP_ITS ---
Operative Report Date of procedure: March 21, 2021 Pre-op Diagnosis: Right lower pole stone, Cystolithiasis Post-op diagnosis: same Procedure Done: 1. Cystoscopy right ureteral stent placement 2. Removal of bladder stones 3. Right renal extracorporeal shockwave lithotripsy. Implants: Right ureteral stent Specimens removed/disposition: Bladder stones Pathology: Bladder stones Surgeon: Renu Crusher Operator: Wyatt Anesthesia: General Estimated blood loss: None Urine output: Not measured Complications: None Findings: 1. Bladder stones in expected position. Removed through cystoscopy 2. Right lower pole stone easily identified fragmented with ESWL. Condition: stable Disposition: PACU Brief History: Mr. Julian is a very pleasant 75-year-old white male who I follow for urolithiasis. He has had some vague right back pain not clearly renal colic but he thinks is different than his chronic back pain. We reviewed that the stone may be but is probably not the source of his pain but he wanted to go ahead and get the stone treated so that to check that off the li st so to speak. Discussed procedure in detail and he wanted to proceed with ESWL and stent. He was also noted to have some bladder stones on his CT scan and those will be removed at cystoscopy with a stent placement. Procedure: After routine preoperative evaluation examination and obtaining of informed consent he was taken to the operating suite on 03/21/2021 where general anesthesia was administered without difficulty after appropriate timeout was performed SCDs confirmed to be functioning, preoperative antibiotics administered, beta-myke protocol confirmed. Prepped and draped in usual sterile fashion in dorsolithotomy position paying careful attention to avoiding pressure points. 21 Eritrean cystoscope with 30 degree lens was introduced into the urethra meatus and advanced into the bladder under videoscopy. The bladder was systematically examined. A large prostate as noted on the CT scan. The stones were identified. There were 4 of them. The 21 Eritrean cystoscope sheath was exchanged for a 25 Eritrean sheath through which the bladder stones were flushed from the bladder with an [employer] evacuator. Flexible tip guidewire was then advanced up the RIGHT ureter into appropriate position and a 6 Eritrean by 30 cm double-pigtail stent was advanced over the guidewire through the cystoscope into appropriate position as confirmed via flu oroscopy and cystoscopy. He was then taken out of dorsolithotomy position and placed in supine position and positioned on the table such that the right lower pole stone was localized at the focal point with the shock head positioned anteriorly. Shockwave therapy was initiated at a rate of 70 and after about 300 shocks a several minute pause was conducted. There was a stepwise increase in intensity from 1-4. Right was 70 throughout into the last 600 shocks where the rate was increased to 90. A total of 2500 shocks administered Results: The stone appeared to fragment into many small pieces. He tolerated procedure well without complications and was awakened in the operating room and returned to the recovery room in stable condition. PLANS: 1. Anticipate discharge from outpatient surgery 2. Follow-up in roughly 2 weeks with KUB, possible cystoscopy and stent removal
--- NOTE | 2021-03-21 06:54 | ANES.PREANE2 ---
Pre-Anesthetic Assessment Pre-Anesthetic Assessment: Height/Weight: Height 1.83 m Weight 95.254 kg Temp Resp BP Pulse Ox 98.2 F 18 130/78 99 03/21/21 06:12 03/21/21 06:12 03/21/21 06:12 03/21/21 06:12 Preop Diagnosis: Right lower pole stone Cystolithiasis Proposed Procedure: Operation Date: 03/21/21 07:00 Proposed Procedures p Cystoscopy 5059/95319/N20.0(Not Applicable) - Gee Sears MD s ESWL(Right) - Gee Sears MD s Stone Fragmentation(Not Applicable) - Gee Sears MD Was Beta Elvis taken within 24 hours: Yes Was Clonidine taken within 24 hours: N/A Last intake: Intake Last Liquid Date 03/20/21 Last Liquid Time 17:00 Last Solid Date 03/20/21 Last Solid Time 10:00 Social: Social History: No alcohol and No tobacco Exam: Pre-Anes Outpt Exam: alert, oriented x 3, clear to auscultation bilaterally and regular rate & rhythm Airway: Submandibular: WNL Cervical ROM: Other (Limited extension) MP: 1 Dentition: Full History/ROS: No significant history except as noted Pulmonary: Pulmonary: None reported CV/HEM: CV/HEM: HTN Comments: METS = 4 : Comments: BPH Hepatic: Hepatic: None reported GI: GI: None reported Metabolic: Metabolic: None reported Musc/skel: Musc/skel: Lower Back Pain Neuropsych: Neuropsych: None reported Anesthetic Plan: ASA status: 2 Anesthesia: Anesthesia Evaluation and General Risk of > 500 ml blood loss (7ml/kg in children): No Meds/Allergies Current Medications: Current Medications Generic Name Dose Route Start Last Admin Trade Name Freq PRN Reason Stop Dose Admin Sodium Chloride 1,000 mls @ 30 ml s/hr 03/21/21 06:00 03/21/21 06:48 Sodium Chloride 0.9% IV 03/22/21 05:59 30 mls/hr .Q24H ANTOINE Administration PFSH Anesthesia PFSH: Medical History 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 Low back pain Primary hypertension Right renal stone Urinary retention Surgical History History of back surgery Family History Mother , at age 91 Diabetes Father , at age 90 CAD (coronary artery disease) Heart attack Social History Alcohol intake: never Marital status: Current occupational status: retired History of recent travel: No Data Anesthesia Cardiac Studies: Echocardiogram Ultrasound 02/20/20 Sestamibi Stress Test (Cardiology) 01/17/21
[2021-03-21] MEDS: levofloxacin-dextrose 5 % 500 MG/100 ML PREMIX 100 MG IV (07:05)
--- NOTE | 2021-03-21 10:05 | PC.NURSE ---
Addendum entered by David Banks RN 03/21/21 10:16: 150 ml of bloody urine returned, urine was strained, nothing found in strainer Original Note: Pt expressed the feeling of urgency but was unable to urinate after trying twice. Dr Sears ordered a one time straight cath to provide relief
--- NOTE | 2021-03-21 11:10 | ANE.PACU2 ---
Inpatient post-anesthesia follow up: Airway intact: Yes Vital signs: Temperature 97.6 F Pulse Rate 62 Respiratory Rate 18 Blood Pressure 136/72 Pulse Oximetry 99 Oxygen Delivery Me thod Room Air Oxygen Flow Rate 0 Fraction of Inspir ed Oxygen Hydration adequate: No Nausea and vomiting: No Pain level: 3 Mental status: Baseline
[2021-03-24 14:47] LABS: Stone Source BLADDER
== END 2021-03-21 10:30 | disposition home or self-care (01) ==
PROVIDERS: PCP Nurse Practitioner; Visit Provider Urology
PROC: 0TJB8ZZ Inspection of Bladder, Via Natural or Artificial Opening Endoscopic (ICD-10-PCS; CPT 52000; principal; 2021-03-21 07:00)
PROC: (CPT 50590; 2021-03-21 07:00)
PROC: (CPT 50605; 2021-03-21 07:00)
DX: N20.0 Calculus of kidney (principal); N21.0 Calculus in bladder; I10 Essential (primary) hypertension; N40.0 Benign prostatic hyperplasia without lower urinary tract symptoms; N40.1 Benign prostatic hyperplasia with lower urinary tract symptoms; N13.8 Other obstructive and reflux uropathy
CPT/HCPCS: 50590; 52332; 74018; 82365; 88300; 96365; C2625; J1956; J2370; J2704; J2710; J3010; J3490; J7030

== ENCOUNTER 2021-04-15 08:20 | Outpatient (CLI) | payer OTHER, SELFPAY ==
--- NOTE | 2021-04-15 08:25 | XRR_ITS ---
PROCEDURE INFORMATION: Exam: XR Abdomen Exam date and time: 04/15/2021 8:25 AM Age: 75 years old Clinical indication: Condition or disease; Kidney or ureter condition; Calculus (stone) in kidney; Prior surgery; Surgery type: Kidney stone stent; Patient HX: HX of kidney stone RT; Renal stent; Additional info: Kidney stone, kub @ mariselh on 04/15/21 @ 8:15. Appt to follow TECHNIQUE: Imaging protocol: XR of the abdomen. Views: Frontal supine view of the abdomen. 1 View. Total images: 2 COMPARISON: CR XR KUB [id number] 03/21/2021 5:54 AM FINDINGS: Gastrointestinal tract: Normal. No bowel dilation. Organs: A double-J right ureteral stent is in place and appears appropriately positioned within the right renal pelvis and urinary bladder. 7 mm irregular calcification the right flank projecting in the area of the inferior pole of the right kidney corresponds to renal calculus seen on prior CT. 3 mm irregular calcification seen in the left flank felt to correspond to renal calculus seen on prior CT. Two additional small densities in the left flank may represent intraluminal contents since no additional calculi were seen on the prior CT. No ureteral nor bladder calculi detected. Vasculature: Incidental venous phlebolith noted. Atherosclerosis is evident. Bones/joints: L5-S1 Posterior spinal fusion is noted. Rods and pedicle screws are in place and there is no evidence of hardware failure. Spinal degenerative changes are evident. XR/XR KUB [id number] IMPRESSION: 1. A double-J right ureteral stent is in place and appears appropriately positioned within the right renal pelvis and urinary bladder. 2. 7 mm irregular calcification the right flank projecting in the area of the inferior pole of the right kidney corresponds to renal calculus seen on prior CT. 3. 3 mm irregular calcification seen in the left flank felt to correspond to renal calculus seen on prior CT. 4. No ureteral nor bladder calculi detected.
== END 2021-04-15 08:21 | disposition home or self-care (01) ==
LOC: RAD 08:22
PROVIDERS: PCP Nurse Practitioner; Visit Provider Urology
DX: N20.0 Calculus of kidney (principal); Z96.0 Presence of urogenital implants
CPT/HCPCS: 74018; 81003

== ENCOUNTER → 2021-05-11 10:30 | Outpatient (BNVA) | payer OTHER, SELFPAY | PROVIDERS: PCP Nurse Practitioner; Referring Provider Internal Medicine Cardiovascular Disease; Visit Provider Internal Medicine Cardiovascular Disease | DX: Z20.822 Contact with and (suspected) exposure to COVID-19 (principal); R06.02 Shortness of breath; R07.9 Chest pain, unspecified; I49.3 Ventricular premature depolarization | CPT/HCPCS: 80048; 85025; 85610; 87635 ==

== ENCOUNTER 2021-05-18 09:45 | Observation (INO) | payer OTHER, MEDICARE, SELFPAY ==
[2021-05-18] VITALS (28 sets, daily range): BP systolic 99–152; BP diastolic 54–93; PULSE 38–75; RESP 7–22; TEMP 36.6–36.8; O2SAT 94–100; BMI 27.9
--- NOTE | 2021-05-18 07:30 | XACV_ITS ---
Exam Room: [facility] Ht: 183 cm Wt: 93 kg BSA: 2.20 m2 Gender: Male : 1945 Any Known Allergies: No known allergies Exam Priority: Routine Procedure(s): Procedure Description: Diagnostic procedure Procedure Description: Left Heart Catheterization Procedure Description: Coronary Angiography Diagnostic Cath Status: Elective Diagnostic Findings * 75-year-old man with past medical history of hypertension and remote history of smoking. He presented initially for evaluation of exertional shortness of breath and fatigue. He was found to have 12% PVC burden on event monitor and underwent sestamibi myocardial perfusion imaging that showed small size reversible perfusion abnormality in mid inferolateral apical inferior and apical lateral wall. He continued to be symptomatic in spite of medical management and hence presented for cardiac catheterization. * Angiography shows a right coronary dominant system. * Coronary angiography shows no disease in the left main artery, minimal disease in the left anterior descending artery, minimal disease in the circumflex artery and mild disease in the right coronary artery. Conclusions 1. Cardiac catheterization revealed 2. no significant coronary artery disease. 2. Left ventricle end-diastolic pressure of 16 mmHg. 3. . Recommendations * Continue medical management and risk factor modification. Diagnostic RX Recommendation: medical therapy and/or counseling Pressures Phase:Rest AO : 170 / 74 ( 109 ) @ 4:26:00 PM 124 / 64 ( 83 ) @ 4:34:00 PM 144 / 39 ( 77 ) @ 4:42:00 PM 141 / 59 ( 90 ) @ 4:43:00 PM LV : 138 / -7 / 16 @ 4:42:00 PM Hemodynamic Findings LVEDP is 16 mmHg. There is no gradient across the aortic valve. Clinical Evaluation EBL: 5mL-10mL Procedural Details Procedure Consent Obtained. Current Diagnosis : Chest Pain. Pre-Procedure Time Out. Identified patient by full name and date of as verbalized by the patient/guarantor. Does the consent match the physician's order: Yes. Accurate & Complete Informed Consent: Yes. Inpatient/Outpatient History & Physical on Chart: Yes. If H&P is completed, is and addenduem needed: No; If yes, is the addendum complete: N/A. Visualize and Verify Site with Patient/Guarantor: N/A. Relevant Radiology Images available: Yes. Pre-op teaching completed and patient verbalized understanding. The risks, benefits, and alternatives of sedation and/or procedure were discussed by physician. The patient agrees to continue. Procedure started. Physician arrived. [facility] Clinical Fraility Score: 3: Managing Well. Meter Maker Indications: New Onset Angina. Chest Pain Symptom Assessment: Typical Angina Symptoms. Correct patient, site and procedure confirmed by cath team. Current diagnosis: Chest Pain. PERRLA. Strong, equal hand electric well logging operator bilaterally. Lungs clear x 5 lobes. IV Site on Arrival: 20 gauge in the left anticubital. IV Fluids: 0.9% NaCl at KVO. 0 mL infused prior to manufacturing laborer. Pre Procedural Pulses: bilateral dorsalis pedis was 1+. Pre Procedural Pulses: bilateral posterior tibial was 2+. Pre Procedural Pulses: bilateral radial was 3+. Oxygen started at 2liters/min via nasal canula. right groin was prepped with chloroprep then draped in the usual sterile fashion. right radial was prepped with chloroprep then draped in the usual sterile fashion. Baseline sample Acquired. HR: 57 BPM. Physician scrubbed in. Immediate Pre-Procedure Time Out. Correct Patient: Yes; Correct Procedure: Yes; Correct Site: Yes; Correct Patient Position: Yes; Correct Supplies: Yes; Dried Flammable Prep: Yes; Blood Products Available: N/A;. Lidocaine 1% infiltrated to the right radial. Arterial access obtained. A 5 croatian TIG catheter in over wire. wire removed. Contrast hand injected through the catheter. Catheter removed over the standard wire. The patient is being taken off the table because of a STEMI in the ED. Vital chart was stopped. Procedure started. Physician arrived. Equipment: 6F - Femoral. Cardiac Cath Pack. ACIST Manifold Kit Model BT 2000. Heparinized Saline (2 units/mL), 1000 mL bag. Kit, Micropuncture. Correct patient, site and procedure confirmed by cath team. PERRLA. Strong, equal hand electric well logging operator bilaterally. Lungs clear x 5 lobes. Baseline sample Acquired. HR: 63 BPM. IV Site on Arrival: 20 gauge in the left anticubital. Physician scrubbed in. Time out performed with cath team. Correct Patient: Yes; Correct Procedure: Yes; Correct Site: Yes; Correct Patient Position: Yes; Correct Supplies: Yes; Dried Flammable Prep: Yes; Blood Products Available: N/A;. Pt arrived to manufacturing laborer with stephens catheter in place. Lidocaine 1% infiltrated to the right groin. Arterial access obtained with micropuncture set. Pt has tortuous vessel. Long wire inserted through the needle. A 5 croatian JL4 catheter in over wire. Multiple views taken of left coronary artery. Catheter removed over the standard wire. A 5 croatian JR4 catheter in over wire. Multiple views taken of right coronary artery. EDP Sample taken: LV 138/-8,16; HR: 44 BPM; SpO2: 98%. Pullback taken: LV Off; AO Off; Mean: , Peak to Peak: , SEP: ; HR: 43 BPM; SpO2: 100%. Catheter removed over the standard wire. A Right femoral angiogram was performed to determine safe placement of closure device. Physician scrubbed out. A Suture was successful obtaining hemostatsis at the Right Femoral artery insertion site. Sheath(s) sutured into position with 2-0 silk and sterile 4x4's and Op-site applied over the site. No oozing or signs and symptoms of hematoma noted. Arterial sheath flushed and connected to tranducer and pressure bag with heparinized saline. Post Procedure: Pulses reassessed and unchanged. PERRLA. Strong, equal hand electric well logging operator bilaterally. No VTE prophylaxis required. Medication's Wasted: Lidocaine 1% = 10 mL. Medication's Wasted: Heparin = 1000 units. Total IV fluids: 46 mL. Contrast type used: Visipaque 320 mgI/mL, 500 mL bottle. Complications: none. Estimated blood loss: 5mL-10mL. Responsiveness - Normal response to verbal stimuli; alert and oriented, PERRLA. Airway - Unaffected, no intervention required; spontaneous ventilation. Circulation: W/N/L, pulses unchanged. Nausea/Vomiting: No. Post-op diagnosis: normal coronaries. Procedure completed. Patient transferred by bed to 1st floor. Vital chart was stopped. Access Site Site: Right Radial artery Sheath Size: 6 Fr Hemostasis Success: Unsuccessful Site: Right Femoral artery Sheath Size: 6 Fr Hemostasis Method: Suture Hemostasis Success: Successful Procedure Medications Start: 8:35 AM Stop: 8:35 AM Medication: Versed Amount: 1 mg Route: I.V. Start: 8:35 AM Stop: 8:35 AM Medication: Fentanyl Amount: 50 mcg Route: I.V. Start: 8:43 AM Stop: 8:43 AM Medication: Nitrogylcerin Amount: 200 mcg Route: I.A. Start: 4:18 PM Stop: 4:18 PM Medication: Versed Amount: 1 mg Route: I.V. Start: 4:19 PM Stop: 4:19 PM Medication: Fentanyl Amount: 50 mcg Route: I.V. Start: 4:06 PM Stop: 4:06 PM Medication: Versed Amount: 1 mg Route: I.V. Start: 4:06 PM Stop: 4:06 PM Medication: Fentanyl Amount: 50 mcg Route: I.V. Start: 4:22 PM Stop: 4:22 PM Medication: Versed Amount: 2 mg Route: I.V. I, the attending physician, have reviewed and verified all procedure medications. Yes, all medications given per verbal order History/Risk Factors Hypertension: Yes Dyslipidemia: No Peripheral Arterial Disease (PAD): No Myocardial Infarction (CT): No Obesity: No Renal Disease: No Tobacco Use: Former Prior Interventions PCI: No CABG: No Valve Surgery: No Report Signatures Finalized by Evelin Lyon MD on 05/22/2021 02:37 PM
[2021-05-18] MEDS: diphenhydrAMINE 50 mg Capsule PO (07:40)
--- NOTE | 2021-05-18 08:14 | P.HP_ITS ---
Same Day Surgery H&P Indication for Procedure/HPI DATE OF PROCEDURE: May 18, 2021 CHIEF COMPLAINT/INDICATIONFOR SURGICAL PROCEDURE: Frequent PVC's, mildly abnormal stress test and exertional shortness of breath PREOP DIAGNOSIS: Right lower pole stone, Cystolithiasis PLANNED PROCEDURE: Operation Date: 05/18/21 08:30 Proposed Procedures p Cardiac Catheterization(Left) - Evelin Lyon MD 75 yo man with PMhx of HTN, former smoker (quit in 1974) presented initially for exertional shortness of breath alongwith fatigue and inability to do much. He was also found to have 12% PVC burden on event monitor and mildly abnormal stress test. As he continued to be symptomatic with medical management decision was made to proceed with left heart cathetarization. No new complaints since last office visit. Medications/Allergies* Home Medications Medication Instructions Recorded Confirmed Type aspirin 81 mg tablet,delayed 81 mg PO DAILY 11/27/19 05/18/21 History release ibuprofen 200 mg tablet 200 mg PO Q6H PRN 11/27/19 05/18/21 History lisinopril 40 mg tablet 40 mg PO DAILY 11/27/19 05/18/21 History hydrochlorothiazide 25 mg tablet 25 mg PO DAILY tab 12/02/20 05/18/21 History aspirin 81 mg tablet,delayed 81 mg PO DAILY 04/25/21 05/18/21 History release (Adult Low Dose Aspirin) Allergies/Adverse Reactions Allergy/AdvReac Type Severity Reaction Status Date / Time No Known Allergies Allergy Verified 04/15/21 09:20 Current Medications: Generic Name Dose Route Start Last Admin Trade Name Freq PRN Reason Stop Dose Admin Sodium Chloride 1,000 mls @ 50 mls/hr 05/18/21 07:30 05/18/21 07:55 Sodium Chloride 0.9% IV 05/19/21 03:29 Not Given .Q20H ONE Pertinent History/Comorbid Conditions* Medical History (Updated 04/15/21 @ 09:55 by Gee Sears MD) 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 Low back pain Primary hypertension Right renal stone Urinary retention Surgical History (Updated 02/18/20 @ 10:10 by Evelin Lyon MD) History of back surgery Family History (Updated 10/04/20 @ 09:38 by Sury Tavares LPN) Father, at age 90 Mother, at age 91 Diabetes Mother CAD (coronary artery disease) Father Heart attack Father Social History Smoking and tobacco status: former smoker Alcohol intake: never Marital status: Current occupational status: retired History of recent travel: No Pertinent Exam Findings alert, oriented x 3, clear to auscultation bilaterally and regular rate & rhythm Conscious Sedation Assessment PATIENT ASSESSED PRIOR TO SEDATION, WITH NO CHANGE NOTED: Yes AIRWAY EVAL/ANESTHESIA PLAN: normal airway, ASA II, Monitored Anesthesia, Risks, benefits & alternatives of sedation and/or procedure discussed and Patient agrees to continue as planned Related Problem List Diagnoses (1) Abnormal stress test: (2) Frequent PVCs: Recommendations Surgery/Procedure today Other Plans: Decision to proceed with left heart cathetarization today as planned. Coding Level of Care Code Acute Wastewater Treatment Plant Instructor for Alex De La Vega Diagnoses Abnormal stress test R94.39 Frequent PVCs I49.3
--- NOTE | 2021-05-18 09:10 | PC.NURSE ---
Procedure aborted, patient taken off table due to stemi alert being called. Pt transferred to CPRU room [address] in [address] Pt placed on bedside phototypesetting equipment monitor. and patient updated by physician. Room assignment given for csu 103 for procedure to be finished at later time.
--- NOTE | 2021-05-18 09:42 | PC.NURSE ---
Report called to CSU. Pt escorted to room csu 103 by wheelchair.
--- NOTE | 2021-05-18 17:47 | ECG_ITS ---
[facility] Test Date: 2021-05-18 Pat Name: Yomi Julian Department: Room: 103 Gender: Male Research Home Economist: : 1945 Requested By: Evelin Lyon Order Number: [id number] Harrison MD: Robert Cali M.D. Measurements Intervals [place] Rate: 63 P: 55 OK: 206 QRS: -9 QRSD: 106 T: 72 QT: 454 QTc: 468 Interpretive Statements SINUS RHYTHM WITH FREQUENT VENTRICULAR PREMATURE COMPLEXES MODERATE ST DEPRESSION [0.05+ mV ST DEPRESSION] PROLONGED QT INTERVAL Compared to ECG 05/17/2020 11:39:17 Ventricular premature complex(es) now present ST (T wave) deviation now present Prolonged QT interval now present T-wave abnormality no longer present Electronically Signed On 05-18-2021 20:22:08 APPLICATIONS ADMINISTRATOR by Robert Cali M.D. [id number]
[2021-05-18] MEDS: sodium chloride 0.9% 1,000 ML 100 ML IV (18:09)
[2021-05-18] MEDS: tamsulosin 0.4 mg Capsule PO (18:19)
[2021-05-19 03:27] VITALS: BP 119/69; PULSE 48; RESP 12; TEMP 36.6; O2SAT 95
[2021-05-19 03:52] VITALS: PULSE 50
[2021-05-19 04:44] LABS: Basophils % 0.4 %; Eosinophils # 0.2 10^3/uL (0.0-0.8); Eosinophils % 2.2 %; Hemoglobin 13.5 g/dL (11.7-16.6); Lymphocytes # 1.9 10^3/uL (0.8-4.8); Lymphocytes % 28.2 %; Mean Corpuscular HGB Conc 32.9 g/dL (30.0-36.0); Mean Corpuscular Hemoglobin 30.5 pg (28.0-34.0); Mean Corpuscular Volume 92.8 fl (80-94); Mean Platelet Volume 9.7 fL (7.4-10.4); Monocytes # 0.6 10^3/uL (0.2-0.9); Monocytes % 8.8 %; Neutrophils # 4.12 10^3/uL (1.8-7.7); Neutrophils % 60.1 %; Nucleated Red Blood Cells % 0 %; Platelet Count 172 10^3/cmm (130-400); Red Blood Count 4.42 10^6/uL (4.1-5.3); Red Cell Distribution Width 13.4 % (12.1-15.1); White Blood Count 6.9 10^3/uL (4.0-10.0)
[2021-05-19] MEDS: sodium chloride 0.9% 1,000 ML 100 ML IV (05:06)
[2021-05-19 05:09] LABS: Anion Gap 15.3 (5-19); Blood Urea Nitrogen 18 mg/dL (8-23); Calcium 9.2 mg/dL (8.5-10.5); Carbon Dioxide 24 mmol/L (22-29); Chloride 104 mmol/L (98-107); Glucose 110 mg/dL (65-115); Osmolality Calculated 293 mOsm/kg (285-295); Potassium 3.3 mmol/L (3.5-5.1); Sodium 140 mmol/L (136-145)
--- NOTE | 2021-05-19 05:57 | PC.NURSE ---
Shift Note Frequent safety and comfort rounds continue. Orders and/or nursing care completed as indicated. Patient monitored for response to intervention and treatment of pain. Education provided includes[]. Patient and/or off premise service representative verbalizes . Will continue to monitor.
[2021-05-19 07:00] VITALS: BP 119/69; PULSE 52; RESP 17; O2SAT 97
[2021-05-19] MEDS: finasteride 5 mg Tablet PO (09:12)
[2021-05-19] MEDS: lisinopril 20 mg Tablet 40 MG PO (09:12)
[2021-05-19] MEDS: amlodipine 5 mg Tablet PO (09:12)
[2021-05-19] MEDS: magnesium lactate 84 mg Tablet PO (09:12)
[2021-05-19] MEDS: tamsulosin 0.4 mg Capsule PO (09:12)
[2021-05-19] MEDS: aspirin 81 mg EC Tablet PO (09:12)
--- NOTE | 2021-05-19 09:58 | P.DS_ITS ---
Discharge Providers Date of Admission: 05/18/21 09:45 Date of Discharge: May 19, 2021 Attending Provider at Admission: Evelin Lyon MD Attending Provider at Discharge: Evelin Lyon MD Primary Care Provider: JUANITO Alonzo Diagnoses at Discharge Discharge Diagnosis (1) Abnormal stress test: Details from hospital stay: No obstructive coronary disease Status: Acute (2) Frequent PVCs: Status: Acute Reason for Visit Reason for Visit: 31462 r07.89 Brief History: 75 yo man with PMhx of HTN, former smoker (quit in 1974) presented initially for exertional shortness of breath alongwith fatigue and inability to do much. He was also found to have? 12% PVC burden on event monitor and mildly abnormal stress test. As he continued to be symptomatic with medical management decision was made to proceed with left heart cathetarization. No new complaints since last office visit. Hospital Course Hospital Course He underwent left heart catheterization via right femoral access. Right radial access was obtained but because of significant tortuosity in aortic arch the procedure was aborted. Mild CAD without any significant obstructive coronary artery disease. He continues to have PVCs during hospitalization. He also complains of snoring at night. No prior sleep study. I will plan for outpatient sleep study. I will start him on low dose Flecainide 25 mg BID and hold off on metoprolol. EKG in 4-7 days. Physical Exam Narrative: Gen: laying comfortably in bed, NAD Neck: No JVD CVS: S1, S2 with intermittent PVC's, No murmur, rub or gallop RS: CTAB/L Ext: Mild bruising at right radial access site. 2+ radial, no hematoma. No bruising or hematoma at R femoral access site. LODGING FACILITIES MANAGER: AAOx3 Urinary Catheter Management: Jones: Cath Placed During This Visit: yes Reason for Continuing Indwelling Catheter: Acute Urinary Retention or Obstruction Urinary Catheter Date of Insertion: 05/18/21 Urinary Catheter Time of Insertion: 13:30 Discharge Data Studies Completed and Pending Pending at discharge Category Date Time Status OPERATIONS SUPERINTENDENT request for service Routine Exams 05/18/21 07:30 Ordered Laboratory Results WBC 6.9 10^3/uL (4.0-10.0) 05/19/21 04:18 RBC 4.42 10^6/uL (4.1-5.3) 05/19/21 04:18 Hgb 13.5 g/dL (11.7-16.6) 05/19/21 04:18 Hct 41.0 % (42.0-52.0) L 05/19/21 04:18 MCV 92.8 fl (80-94) 05/19/21 04:18 MCH 30.5 pg (28.0-34.0) 05/19/21 04:18 MCHC 32.9 g/dL (30.0-36.0) 05/19/21 04:18 RDW 13.4 % (12.1-15.1) 05/19/21 04:18 Plt Count 172 10^3/cmm (130-400) 05/19/21 04:18 MPV 9.7 fL (7.4-10.4) 05/19/21 04:18 Neut % (Auto) 60.1 % 05/19/21 04:18 Lymph % (Auto) 28.2 % 05/19/21 04:18 [place] % (Auto) 8.8 % 05/19/21 04:18 Eos % (Auto) 2.2 % 05/19/21 04:18 Baso % (Auto) 0.4 % 05/19/21 04:18 Neut # (Auto) 4.12 10^3/uL (1.8-7.7) 05/19/21 04:18 Lymph # (Auto) 1.9 10^3/uL (0.8-4.8) 05/19/21 04:18 [place] # (Auto) 0.6 10^3/uL (0.2-0.9) 05/19/21 04:18 Eos # (Auto) 0.2 10^3/uL (0.0-0.8) 05/19/21 04:18 Baso # (Auto) 0.0 10^3/uL (0.0-0.1) 05/19/21 04:18 Nucleated RBC % (auto) 0 % 05/19/21 04:18 Nucleated RBCs # 0.0 /100WBC 05/19/21 04:18 Sodium 140 mmol/L (136-145) 05/19/21 04:18 Potassium 3.3 mmol/L (3.5-5.1) L 05/19/21 04:18 Chloride 104 mmol/L (98-107) 05/19/21 04:18 Carbon Dioxide 24 mmol/L (22-29) 05/19/21 04:18 Anion Gap 15.3 (5-19) 05/19/21 04:18 BUN 18 mg/dL (8-23) 05/19/21 04:18 Creatinine 0.7 mg/dL (0.7-1.2) 05/19/21 04:18 GFR Calculation Not Reportable 05/19/21 04:18 Glucose 110 mg/dL (65-115) 05/19/21 04:18 Calculated Osmolality 293 mOsm/kg (285-295) 05/19/21 04:18 Calcium 9.2 mg/dL (8.5-10.5) 05/19/21 04:18 Vitals Last Vital Signs Temp 98 F 05/19/21 03:27 Pulse 52 L 05/19/21 07:00 Resp 17 05/19/21 07:00 BP 119/69 05/19/21 07:00 Pulse Ox 97 05/19/21 07:00 Discharge Plan Discharge Patient Disposition: Home Condition: Stable Prescriptions: New flecainide 50 mg tablet 25 mg PO Q12H Qty: 30 3RF Continued lisinopril 40 mg tablet 40 mg PO DAILY 0RF ibuprofen 200 mg tablet 200 mg PO Q6H PRN (Reason: Pain) 0RF hydrochlorothiazide 25 mg tablet 25 mg PO DAILY 0RF tamsulosin 0.4 mg capsule 0.4 mg PO BID Qty: 180 3RF finasteride 5 mg tablet 5 mg PO QDAY Qty: 90 3RF amlodipine 5 mg tablet 5 mg PO DAILY Qty: 90 3RF nitroglycerin 0.4 mg tablet, sublingual 0.4 mg sublingual Q5M PRN (Reason: chest pain) Qty: 50 6RF Rx Instructions: do not exceed 3 doses per episode rosuvastatin [Crestor] 10 mg tablet 10 mg PO DAILY Qty: 90 3RF aspirin [Adult Low Dose Aspirin] 81 mg tablet,delayed release (DR/EC) 81 mg PO DAILY 0RF Rx Instructions: Take 4 tablets the AM of procedure. hydrocodone-acetaminophen 5-325 mg tablet 1 tab PO Q8H PRN (Reason: pain) Qty: 12 0RF Changed metoprolol tartrate 25 mg tablet 12.5 mg PO BID PRN (Reason: SOB) Qty: 90 3RF Rx Instructions: Use as needed if HR>60 bpm Discontinued aspirin 81 mg tablet,delayed release (DR/EC) 81 mg PO DAILY 0RF clopidogrel [Plavix] 75 mg tablet 75 mg PO DIRECTED Qty: 20 0RF Rx Instructions: Take 300 mg (4 tabs) night prior to procedure Take 75mg (1 tab) AM of procedure Then as directed by Discharge Orders: Discharge Order (Routine); Ordered 05/19/21 Ordered By: Evelin Lyon Other Ambulatory Orders: ECG 12 lead EKG (Routine) Timeframe: 1 Week Facility: [facility] - Location: Respiratory Therapy Ordered By: Evelin Lyon Referrals: Sury Rea FNP [Nurse Practitioner] - 05/26/21 8:15 am (Follow up after flecainide initiation, f/u EKG in 1 week Heart Care Located now in the [facility] on the second floor) Discharge Diet: Cardiac Discharge Activity: Increase activity as tolerated Patient Instructions: Flecainide (By mouth), Opioid Safety Activity Restrictions/Additional Instructions: details of your EKG,Do not lift anything more than 5 lbs for 1 week. Keep the site dry and clean Take medications as prescribed and follow up as scheduled. No tub baths or swimming for 1 week Centralized Scheduling Department will be calling you with the details of you EKG. If you don't hear from them by Sunday afternoon, please give them a call at [phone] Discharge Attestations Time Spent in Discharge Care*: less than 30 min Quality Metrics Clinical Quality Measures [ No reported AMI, CVA or VTE this stay] Coding Level of Care Code Acute Chg FW DC note Diagnoses Abnormal stress test R94.39 Frequent PVCs I49.3
[2021-05-19 10:17] VITALS: BP 119/69; PULSE 60; RESP 16; O2SAT 97
--- NOTE | 2021-05-19 10:56 | PC.CHAP ---
Pastoral Care Encounter/Spiritual Assessment Type of Contact [] Declined rural route mail carrier visit [] Patient/Family/Request visit [] Outpatient visit [] Follow-up visit [] Physician referral [] Code/Alert [x] Routine visit [] Staff referral [] Actively dying [] Patient sleeping [] Family support [] [] Out of room [] Palliative care [] [x] Receiving care in room [] Pre-surgical visit [] Trauma [] Long length of stay [] ICU visit [] Other: Relational/Emotional Strength [x] Patient feels connected with others/family/visitors/staff [] Distress [] Loneliness/isolation [] Abandonment Spirituality of Patient [x] Person of Eryn [] Attends Nondenominational of their Eryn [x] Believes in Prayer [] Reads Bible or Uatsdin materials [] There are Spiritual issues to be addressed Advertising Writer Interventions [x] Prayer [x] Active listening [x] Non-anxious presence [x] Spiritual/emotional support [] Crisis/trauma care [x] Spiritual counseling [] Bereavement support [] Provided bereavement packet [] Provided Bible/devotional materials [] Provided toy/stuffed animal, coloring book to patient or family member [] Provided Communion [] Anointing/[place] [] Salvation [x] Completed spiritual assessment [] Other: Impact on Illness or Injury [] Angry [] Fearful [x] Anxious [] Often cries [] Exhaustion [] Unable to work [] Unable to attend evangelical [] Unable to walk/stand [] Unable to read [] Unable to drive [] Unable to eat/drink [] Unable to sleep [] Unable to be with family [] Patient intubated [] Other: Summary had tests waiting to see if he needs stentss feels good is going home Time spent with patient 10 mins
--- NOTE | 2021-05-19 12:16 | PC.NURSE ---
pts piv and kat dc'd. discharge instructions given. new medications discussed. pt verbalized understanding and has no further questions at this time. pt left with his via pov. cath sites cdi, no s/s hematoma.
== END 2021-05-19 10:45 | disposition home or self-care (01) ==
LOC: CSU 09:49
PROVIDERS: Admitting Provider Internal Medicine Cardiovascular Disease; PCP Nurse Practitioner; Visit Provider Internal Medicine Cardiovascular Disease
DX: R94.39 Abnormal result of other cardiovascular function study (principal); I49.3 Ventricular premature depolarization; I10 Essential (primary) hypertension; Z79.82 Long term (current) use of aspirin; N40.1 Benign prostatic hyperplasia with lower urinary tract symptoms; N13.8 Other obstructive and reflux uropathy; Z87.891 Personal history of nicotine dependence
CPT/HCPCS: 36415; 51702; 80048; 85025; 93005; 93452; 93458; C1769; C1887; C1894; G0378; J1644; J2250; J3010; J3490; J7030; Q0163; Q9967

== ENCOUNTER → 2021-05-26 08:06 | Outpatient (BNVA) | payer OTHER, SELFPAY | PROVIDERS: PCP Nurse Practitioner; Visit Provider Nurse Practitioner Family | DX: I49.3 Ventricular premature depolarization (principal); Z87.891 Personal history of nicotine dependence | CPT/HCPCS: 80048; 99213; 99214 ==

== ENCOUNTER 2021-06-09 07:32 | Outpatient (CLI) | payer OTHER, SELFPAY ==
--- NOTE | 2021-06-09 07:30 | XR_ITS ---
WS: [id number] KUB, AP view, 06/09/2021 Clinical Data: RIGHT RENAL STONE Comparison: KUB, 04/15/2021. Findings: No abnormal intraabdominal masses are seen. There is no dilatated small bowel or evidence of obstruct ion. The right ureteral stent has been removed. There is a small calcification overlying the inferior pole of the right kidney and another 1 overlying the left kidney which may represent renal calculi. There is an L5-S1 posterior lumbar fusion unchanged. XR/XR KUB [id number] Impression: 1. Probable small bilateral renal calculi. 2. Removal of right ureteral stent.
== END 2021-06-09 07:33 | disposition home or self-care (01) ==
LOC: RAD 07:32
PROVIDERS: PCP Nurse Practitioner; Visit Provider Urology
DX: Z46.6 Encounter for fitting and adjustment of urinary device (principal); N20.0 Calculus of kidney
CPT/HCPCS: 74018; 81003

== ENCOUNTER → 2021-06-14 12:30 | Outpatient (BNVA) | payer OTHER, SELFPAY | PROVIDERS: PCP Nurse Practitioner; Visit Provider Internal Medicine Cardiovascular Disease | DX: I49.3 Ventricular premature depolarization (principal); I10 Essential (primary) hypertension; Z87.891 Personal history of nicotine dependence | CPT/HCPCS: 99213 ==

== ENCOUNTER → 2021-12-06 10:47 | Outpatient (BNVA) | payer OTHER, SELFPAY | PROVIDERS: PCP Nurse Practitioner; Visit Provider Internal Medicine Cardiovascular Disease | DX: R00.1 Bradycardia, unspecified (principal); I10 Essential (primary) hypertension; Z87.891 Personal history of nicotine dependence | CPT/HCPCS: 99214 ==

== ENCOUNTER 2021-12-13 08:36 | Outpatient (CLI) | payer OTHER, SELFPAY ==
--- NOTE | 2021-12-13 08:47 | XR_ITS ---
WS: [id number] Exam: XR KUB [id number] Date/Time of Exam: 12/13/2021 8:47 AM Reason For Exam: renal stone Comparison 06/09/2021. Small calcifications superimpose both kidneys and apparently represent known renal stones. No bowel o bstruction or free air. Operative fusion of the lumbosacral spine. No sign of organ enlargement. XR/XR KUB [id number] IMPRESSION: 1. No acute abdominal process. 2. Small bilateral renal calculi which is been reported previously.
== END 2021-12-13 08:37 | disposition home or self-care (01) ==
LOC: RAD 08:37
PROVIDERS: PCP Nurse Practitioner; Visit Provider Urology
DX: N20.0 Calculus of kidney (principal); N40.1 Benign prostatic hyperplasia with lower urinary tract symptoms; N20.9 Urinary calculus, unspecified
CPT/HCPCS: 51798; 74018; 81003; 99213

== ENCOUNTER → 2022-05-11 15:27 | Outpatient (BNVA) | payer OTHER, SELFPAY | PROVIDERS: PCP Nurse Practitioner; Visit Provider Nurse Practitioner Family | DX: R00.1 Bradycardia, unspecified (principal) | CPT/HCPCS: 93005; 99214 ==

== ENCOUNTER → 2022-05-19 09:53 | Outpatient (BNVA) | payer OTHER, SELFPAY | PROVIDERS: PCP Nurse Practitioner; Visit Provider Nurse Practitioner Family | DX: I49.3 Ventricular premature depolarization (principal); Z79.82 Long term (current) use of aspirin; Z87.891 Personal history of nicotine dependence | CPT/HCPCS: 99213 ==

== ENCOUNTER → 2022-05-23 13:27 | Outpatient (BNVA) | payer OTHER, SELFPAY | PROVIDERS: PCP Nurse Practitioner; Visit Provider Thoracic Surgery (Cardiothoracic Vascular Surgery) | DX: I87.2 Venous insufficiency (chronic) (peripheral) (principal); I73.9 Peripheral vascular disease, unspecified; Z79.82 Long term (current) use of aspirin; Z87.891 Personal history of nicotine dependence | CPT/HCPCS: 99203 ==

== ENCOUNTER 2022-06-12 09:01 | Outpatient (CLI) | payer OTHER, SELFPAY ==
--- NOTE | 2022-06-12 09:30 | USCV_ITS ---
Yomi Julian Age: 76 Gender: M : 1945 Exam Date: 06/12/2022 09:43 Ordering Phys: Talha George MD (Andy) ([email or web address]) Technologist: CT [place]am [place] [facility] [place] Ind[place]: HISTORY: PROCEDURES: FINDINGS: no dvt, deep system reflux noted in rt pop vein. bilateral gsv reflux with left being worse than right. The reflux time at the right saphenofemoral junction, distal to the saphenofemoral junction and the proximal greater saphenous vein segments were found to be 1.54, 3.96 and 2.37 seconds respectively. The reflux time at the left distal to saphenofemoral junction, proximal, mid, distal and below-knee greater saphenous vein segments were 3.32, 3.57, 4.0, 3.81 and 2.96 seconds respectively CONCLUSIONS 1. No evidence of DVT in the above-mentioned identifiable veins. 2. On the right side, venous reflux greater than 500 ms were noted at the saphenofemoral junction, distal to the saphenofemoral junction and at the proximal segment of the greater saphenous vein. These venous segments were found to be elevated from 0.47 to 0.72 cm in diameter and greater than 1 cm deep from the surface. 3. On the left side, Significant venous reflux of greater than 500 ms were noted distal to the saphenofemoral junction, proximal, mid, distal and below-knee segments of the great saphenous vein. These venous segments are measuring away from 0.52 to 0.88 cm in diameter. The mid, distal and below-knee segments of the greater saphenous vein were found to be less than 1 cm deep from the surface. Further details of the reflux time please refer to the measurements mentioned above Dr Shawna Seaman MD [facility] (Electronically Signed) Final Date: 14 June 2022 21:43 S
== END 2022-06-12 09:02 | disposition home or self-care (01) ==
LOC: RAD 09:06
PROVIDERS: PCP Nurse Practitioner; Visit Provider Thoracic Surgery (Cardiothoracic Vascular Surgery)
DX: I83.893 Varicose veins of bilateral lower extremities with other complications (principal); M79.606 Pain in leg, unspecified; I73.9 Peripheral vascular disease, unspecified
CPT/HCPCS: 93970

== ENCOUNTER 2022-06-19 09:01 | Outpatient (CLI) | payer OTHER, SELFPAY ==
--- NOTE | 2022-06-19 09:30 | USCV_ITS ---
Yomi Julian Age: 76 Gender: M : 1945 Exam Date: 06/19/2022 09:14 Ordering Phys: Talha George MD (Andy) ([email or web address]) Technologist: CT [place] [facility] [place] [facility] [place]: le leg pain Risk Factors: Previous Vascular Surgery: RIGHT LEFT BP: 126.0 / 75.00 BP: 122.0/ 74.00 0 0 Waveform Velocity (cm/s) Velocity (cm/s) Waveform Triphasic 74.2 Iliac Prox 95.7 Triphasic Triphasic 89.1 Iliac Mid 81.6 Triphasic Triphasic 77.3 Iliac Distal 69.4 Triphasic Triphasic 91.0 INSTRUMENT REPAIR SUPERVISOR 46.9 Triphasic Biphasic 55.7 SFA Prox 82.7 Triphasic Biphasic 51.6 SFA Mid 84.0 Triphasic Biphasic 58.8 SFA Dist 88.8 Triphasic Triphasic 75.2 POP 54.2 Triphasic Triphasic 51.6 DIRECTOR OF REGIONAL SALES 76.0 Triphasic Triphasic 37.8 DPA 35.7 Triphasic 1.0 IRVIN 1.0 FINDINGS Intimal thickening and minimal plaques are noted in the iliac, femoral and popliteal arteries on the right side Mild to moderate diffuse plaques were noted in the popliteal artery on the left side Normal Doppler flow velocities and waveforms CONCLUSIONS No evidence of any significant arterial obstruction, based on the above findings. Mild to moderate diffuse plaques in the left popliteal artery. Minimal plaques at the right popliteal artery Intimal thickening and minimal plaques in the iliac and femoral arteries bilaterally Dr Shawna Seaman MD [facility] (Electronically Signed) Final Date: 20 June 2022 10:04 S
== END 2022-06-19 09:02 | disposition home or self-care (01) ==
PROVIDERS: PCP Nurse Practitioner; Visit Provider Thoracic Surgery (Cardiothoracic Vascular Surgery)
DX: I73.9 Peripheral vascular disease, unspecified (principal); M79.606 Pain in leg, unspecified
CPT/HCPCS: 93925

== ENCOUNTER → 2022-06-27 13:23 | Outpatient (BNVA) | payer OTHER, SELFPAY | PROVIDERS: PCP Nurse Practitioner; Visit Provider Nurse Practitioner Family | DX: I49.3 Ventricular premature depolarization (principal); Z87.891 Personal history of nicotine dependence; Z79.82 Long term (current) use of aspirin | CPT/HCPCS: 93005; 99213 ==

== ENCOUNTER → 2022-09-21 09:57 | Outpatient (BNVA) | payer OTHER, SELFPAY | PROVIDERS: PCP Nurse Practitioner; Visit Provider Thoracic Surgery (Cardiothoracic Vascular Surgery) | DX: I87.2 Venous insufficiency (chronic) (peripheral) (principal) | CPT/HCPCS: 99212 ==

== ENCOUNTER → 2022-10-11 14:02 | Outpatient (BNVA) | payer OTHER, SELFPAY | PROVIDERS: PCP Nurse Practitioner; Visit Provider Nurse Practitioner Family | DX: I87.2 Venous insufficiency (chronic) (peripheral) (principal); I49.3 Ventricular premature depolarization; Z87.891 Personal history of nicotine dependence | CPT/HCPCS: 99213 ==

== ENCOUNTER → 2022-11-16 09:21 | Outpatient (BNVA) | payer OTHER, SELFPAY | PROVIDERS: PCP Nurse Practitioner; Visit Provider Nurse Practitioner Family | DX: I87.2 Venous insufficiency (chronic) (peripheral) (principal); I49.3 Ventricular premature depolarization; I10 Essential (primary) hypertension; Z87.891 Personal history of nicotine dependence; Z79.82 Long term (current) use of aspirin | CPT/HCPCS: 99214 ==

== ENCOUNTER 2023-04-02 08:40 | Emergency (ER) | payer OTHER, SELFPAY ==
[2023-04-02] VITALS (18 sets, daily range): BP systolic 100–166; BP diastolic 53–98; PULSE 74–117; RESP 14–17; TEMP 36.4–36.9; O2SAT 91–100; BMI 28.5
--- NOTE | 2023-04-02 08:43 | XR_ITS ---
WS: [id number] PORTABLE CHEST HISTORY: dyspnea/cough COMPARISON: None available. No pneumonia. Benign granuloma at the lingula. Normal vasculature. No pleural effusion or pneumothora x. Cardiac size: Normal. Mediastinum/Aorta: Mild atherosclerosis aorta. No osseous abnormality seen. IMPRESSION: Unremarkable portable chest.
--- NOTE | 2023-04-02 08:43 | W.ED.ABDPA2 ---
HPI - Abdominal Pain General: Chief Complaint: Urogenital-Male Stated Complaint: abd pain, low back pain, Time Seen by Provider: 04/02/23 08:42 Source: patient Mode of arrival: ambulatory History of Present Illness: 77-year-old male presents emergency room complaining of right-sided flank pain radiating down into the right lower quadrant. Pain is similar to what he had in the past when he has had a kidney stone he has not noticed any hematuria he has had decreased urinary output. He had a little dribbling of urination this morning about 6 to 8 hours ago he states his last time he felt like he could not fully empty his bladder. He denies any fever sweats or chills or any recent trauma. He is currently on tamsulosin 1. He has a problem of urinary retention in the past. MD elicited complaint: flank pain (R) Pertinent past history: kidney stones Onset (ago): hour(s) Pain Consistency: constant Location: R flank Severity: severe Quality: sharp Radiation: RLQ Migration to: RLQ Exacerbating factors: nothing Relieving factors: nothing Associated Symptoms: Reports nausea, poor appetite and other; Denies anorexia, belching, bloating, change in bowel habits, change in stool character, chills, coffee ground emesis, constipation, GI cramping, diarrhea, dyspepsia, dysuria, excessive flatus, fever(s), heartburn, hematochezia, hematuria, hematemesis, fecal incontinence, loose stools, melena, syncope and vomiting Review of Systems Const: Denies: fever(s) or chills Card: Denies: chest pain or syncope Resp: Denies: dyspnea GI: Reports: nausea and other; Denies: abdominal pain, vomiting, hematemesis, coffee ground emesis, heartburn, diarrhea, constipation, bloating, GI cramping, belching, excessive flatus, fecal incontinence, change in bowel habits, change in stool character, hematochezia or melena : Reports: flank pain, urinary dribbling and difficulty starting urination; Denies: dysuria, urinary frequency, urinary urgency or hematuria Musc: Denies: neck pain or back pain Skin/Breast: Denies: rash PFSH ED PFSH: Medical History Urolithiasis PVCs (premature ventricular contractions) Right renal stone BPH loc w urin obs/LUTS Urinary retention Primary hypertension Low back pain Surgical History H/O submucous nasal surgery History of back surgery Family History Mother , at age 91 Diabetes Father , at age 90 CAD (coronary artery disease) Heart attack Social History Smoking and tobacco/nicotine status: former use of tobacco/nicotine Alcohol intake: never Substance/Drug Use: never Marital status: Current occupational status: retired Physical Exam Const: GENERAL APPEARANCE: cooperative and comfortable ORIENTATION/CONSCIOUSNESS: Yes awake, Yes oriented to person, Yes oriented to place and Yes oriented to time HENMT: COMMON NORMALS: normocephalic, atraumatic and hearing grossly normal bilaterally HEAD & SCALP: normocephalic and atraumatic Resp: COMMON NORMALS: normal respiratory effort, No retractions, No use of accessory muscles and clear to auscultation bilaterally AUSCULTATION: clear to auscultation bilaterally Cardio: COMMON NORMALS: regular rate, regular rhythm and No murmurs present (Cardio) RATE: regular rate RHYTHM: regular rhythm GI: COMMON NORMALS: Soft to palpation and No hepatosplenomegaly present AUSCULTATION: Yes normoactive bowel sounds PALPATION: Yes Soft to palpation, No Tenderness to palpation present (GI), No Guarding due to palpation present (GI) and Yes No hepatosplenomegaly present : BLADDER/KIDNEY EXAM: Yes CVA tenderness Back/Pelvis: GENERAL BACK: Yes CVA tenderness CVA tenderness: right Extremity: COMMON NORMALS: normal to inspection, capillary refill normal, no clubbing, cyanosis or edema, no calf tenderness and no pedal edema Neuro: SENSORIUM/ORIENTATION: Yes oriented to person, Yes oriented to place and Yes oriented to time Skin: COMMON NORMALS: no rashes or lesions noted GENERAL SKIN EXAM: no rashes or lesions noted Course Vital Signs: Vital signs: Vital Signs Temperature 98.5 F 04/02/23 20:00 Pulse Rate 80 04/03/23 04:00 Respiratory Rate 18 04/03/23 04:00 Blood Pressure 97/62 04/03/23 03:42 Pulse Oximetry 93 04/03/23 04:00 Oxygen Delivery Me thod Nasal Cannula 04/03/23 04:00 Oxygen Flow Rate 2 04/03/23 03:42 MDM - Abdominal Pain Medical Decision Making Cystitis with proximal obstructing ureterolithiasis. By my measurements on ultrasound approximately 6 x 11 mm. Cultures done started on Rocephin will transfer to [facility] in [place] they have excepted her awaiting a bed assignment April 03, 2023 8:08 AM Patient started on scheduled antibiotics and as needed Dilaudid for pain and has done well. Has required a couple doses of pain medications overnight. We were able to finally get a bed assignment transfer patient has been arranged patient stable to transfer to [facility] for definitive urologic care via [facility]. Medical Records I reviewed the patient's medical records. Lab Data I reviewed the patient's lab results. 04/02/23 09:01 04/02/23 09:01 Labs/Radiology: Laboratory Results WBC 13.83 10^3/uL (3.29-11.43) H 04/02/23 09:01 RBC 5.52 10^6/uL (3.85-5.65) 04/02/23 09:01 Hgb 16.60 g/dL (11.27-16.99) 04/02/23 09:01 Hct 50.3 % (37-53) 04/02/23 09:01 MCV 91.1 fl (82-101) 04/02/23 09:01 MCH 30.1 pg (27-33) 04/02/23 09:01 MCHC 33.0 g/dL (30-55) 04/02/23 09:01 RDW 13.2 % (12.1-15.1) 04/02/23 09:01 Plt Count 212 10^3/cmm (157-399) 04/02/23 09:01 MPV 9.1 fL (7.4-10.4) 04/02/23 09:01 Neut % (Auto) 87.1 % 04/02/23 09:01 Lymph % (Auto) 6.7 % 04/02/23 09:01 [place] % (Auto) 5.4 % 04/02/23 09:01 Eos % (Auto) 0.1 % 04/02/23 09:01 Baso % (Auto) 0.3 % 04/02/23 09:01 Neut # (Auto) 12.04 10^3/uL (1.8-7.7) H 04/02/23 09:01 Lymph # (Auto) 0.9 10^3/uL (0.8-4.8) 04/02/23 09:01 [place] # (Auto) 0.8 10^3/uL (0.2-0.9) 04/02/23 09:01 Eos # (Auto) 0.0 10^3/uL (0.0-0.8) 04/02/23 09:01 Baso # (Auto) 0.0 10^3/uL (0.0-0.1) 04/02/23 09:01 Nucleated RBC % (auto) 0 % 04/02/23 09:01 Nucleated RBCs # 0.0 /100WBC 04/02/23 09:01 Sodium 139 mmol/L (136-145) 04/02/23 09:01 Potassium 3.1 mmol/L (3.5-5.1) L 04/02/23 09:01 Chloride 98 mmol/L (98-107) 04/02/23 09:01 Carbon Dioxide 26 mmol/L (22-29) 04/02/23 09:01 Anion Gap 18.1 (5-19) 04/02/23 09:01 BUN 20 mg/dL (8-23) 04/02/23 09:01 Creatinine 1.0 mg/dL (0.7-1.2) 04/02/23 09:01 GFR Calculation Not Reportable 04/02/23 09:01 Glucose 145 mg/dL (65-115) H 04/02/23 09:01 Calculated Osmolality 293 mOsm/kg (285-295) 04/02/23 09:01 Calcium 9.8 mg/dL (8.5-10.5) 04/02/23 09:01 Total Bilirubin 0.8 mg/dL (0.15-1.2) 04/02/23 09:01 AST 25 U/L (0-40) 04/02/23 09:01 ALT 17 U/L (0-41) 04/02/23 09:01 Alkaline Phosphatase 61 U/L (40-130) 04/02/23 09:01 Total Protein 7.2 g/dL (6.6-8.7) 04/02/23 09:01 Albumin 4.3 g/dL (3.5-5.2) 04/02/23 09:01 Globulin 2.9 g/dL (1.3-4.6) 04/02/23 09:01 Lipase 27 U/L (13-60) 04/02/23 09:01 Urine Color Yellow (Yellow) 04/02/23 10:43 Urine Appearance Cloudy (CLEAR) A 04/02/23 10:43 Urine pH 7 (5-7) 04/02/23 10:43 Ur Specific [place] 1.005 (1.005-1.030) 04/02/23 10:43 Urine Protein Neg (Negative) 04/02/23 10:43 Urine Glucose (UA) Norm (Normal) 04/02/23 10:43 Urine Ketones Negative (Negative) 04/02/23 10:43 Urine Blood 2+ (Negative) H 04/02/23 10:43 Urine Nitrate Positive (Negative) H 04/02/23 10:43 Urine Bilirubin Neg (Negative) 04/02/23 10:43 Urine Urobilinogen Neg mg/dL (Negative) 04/02/23 10:43 Ur Leukocyte Esterase 1+ (Negative) H 04/02/23 10:43 Urine RBC 10-15 /hpf (0-2) H 04/02/23 10:43 Urine WBC 40-55 /hpf (0-5) H 04/02/23 10:43 Ur Squamous Epith Cells 0-4 /hpf (0-5) H 04/02/23 10:43 Amorphous Sediment Not Reportable 04/02/23 10:43 Urine Bacteria 3+ /hpf (NONE) H 04/02/23 10:43 All radiology interpretation(s) finalized by discharge Discharge Plan Discharge Patient Disposition: Xfer Short-Term Hosp Clinical Impression: Urolithiasis, Cystitis Condition: Stable Referrals: Eri Blair FNP [Primary Care Provider] - Coding Level of Care Code ED Echocardiograph Tech for Alex De La Vega
--- NOTE | 2023-04-02 09:03 | ECG_ITS ---
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 Measurements Intervals [place] Rate: 75 P: 102 NE: 202 QRS: -16 QRSD: 105 T: 77 QT: 411 QTc: 461 Interpretive Statements SINUS RHYTHM WITH OCCASIONAL VENTRICULAR PREMATURE COMPLEXES SEPTAL MYOCARDIAL INFARCTION , PROBABLY OLD [40+ ms Q WAVE IN V1/V2] Compared to ECG 05/18/2021 18:45:33 Myocardial infarct finding now present ST (T wave) deviation no longer present Prolonged QT interval no longer present Electronically Signed On 04-02-2023 11:22:13 CONTRACT RECRUITER by Robert Cali M.D. [id number]
[2023-04-02 09:09] LABS: Basophils % 0.3 %; Eosinophils % 0.1 %; Hematocrit 50.3 % (37-53); Lymphocytes # 0.9 10^3/uL (0.8-4.8); Lymphocytes % 6.7 %; Mean Corpuscular Hemoglobin 30.1 pg (27-33); Mean Corpuscular Volume 91.1 fl (82-101); Mean Platelet Volume 9.1 fL (7.4-10.4); Monocytes # 0.8 10^3/uL (0.2-0.9); Monocytes % 5.4 %; Neutrophils # 12.04 10^3/uL (1.8-7.7); Neutrophils % 87.1 %; Nucleated Red Blood Cells % 0 %; Platelet Count 212 10^3/cmm (157-399); Red Blood Count 5.52 10^6/uL (3.85-5.65); Red Cell Distribution Width 13.2 % (12.1-15.1); White Blood Count 13.83 10^3/uL (3.29-11.43)
--- NOTE | 2023-04-02 09:16 | CT_ITS ---
WS: [id number] CT ABDOMEN AND PELVIS NONCONTRAST HISTORY: flank pain TECHNIQUE: Imaging performed through the abdomen and pelvis. Coronal and sagittal reformats are submi tted. All CT scans at [facility] use at least one of these dose optimization techniques: auto mated exposure control; mA and/or kV adjustment per patient size (includes targeted exams where dose is matched to clinical indication); or iterative reconstruction. DLP: 962.22 mGy.cm COMPARISON: 03/09/2021 Lower thorax: Benign granuloma at the lingula. Normal size heart. Small hiatal hernia. Liver: Normal size with granulomata. No bile duct dilatation. Gallbladder: Normally distended gallbladder with cholelithiasis. No adjacent inflammation. Pancreas: Normal size and attenuation. Normal pancreatic duct. No pancreatitis or mass. Spleen: Normal size with granulomata. Adrenal glands: Normal. No mass. Right kidney: Normal size kidney with moderate perinephric stranding. Mild dilatation of the renal pe lvis. 4 x 7 mm calcification in the proximal ureter. The distal ureter is normal caliber. No addition al calcifications in the renal pelvis. Left kidney: Normal size kidney with mild perinephric stranding. Nonobstructing calcification. Low-at tenuation mass in the lower pole with low Hounsfield units. Aorta: Mild atherosclerosis aorta. No free fluid, intraperitoneal air or significant lymphadenopathy. GI tract: No obstructive pattern. Numerous diverticula throughout the mid to distal colon. No evidenc e for acute diverticulitis. Normal appendix. Abdominal wall: Small umbilical hernia contains fat only. Pelvis: Well-distended urinary bladder. Enlarged prostate gland encroaches into the bladder. Inguinal canals are patent bilaterally containing fat. Osseous structures: Posterior lumbar fusion hardware at L5-S1. IMPRESSION: 1. Mild RIGHT hydroureteronephrosis secondary to a 4 x 7 mm calcification in the proximal ureter. 2. Moderate RIGHT perinephric stranding. 3. Normal appendix. 4. Moderate distal colonic diverticulosis without acute diverticulitis.
[2023-04-02] MEDS: ondansetron 2 mg/ML SDV 2 mL 4 MG IVP (09:23)
[2023-04-02] MEDS: morphine 4 mg/mL SDV 1 mL IVP ×2 (09:24→11:18)
[2023-04-02 09:27] LABS: Alanine Aminotransferase 17 U/L (0-41); Albumin Level 4.3 g/dL (3.5-5.2); Alkaline Phosphatase 61 U/L (40-130); Anion Gap 18.1 (5-19); Aspartate Amino Transferase 25 U/L (0-40); Blood Urea Nitrogen 20 mg/dL (8-23); Calcium 9.8 mg/dL (8.5-10.5); Carbon Dioxide 26 mmol/L (22-29); Chloride 98 mmol/L (98-107); Globulin 2.9 g/dL (1.3-4.6); Glucose 145 mg/dL (65-115); Lipase 27 U/L (13-60); Osmolality Calculated 293 mOsm/kg (285-295); Potassium 3.1 mmol/L (3.5-5.1); Sodium 139 mmol/L (136-145); Total Bilirubin 0.8 mg/dL (0.15-1.2); Total Protein 7.2 g/dL (6.6-8.7)
[2023-04-02 11:16] LABS: Add Urine Culture? Yes; Add Urine Microscopic? YES; Bacteria Urine 3+ /hpf; Bilirubin Urine Neg (Negative); Blood Urine 2+ (Negative); Glucose Urine UA Norm (Normal); Ketones Urine Negative (Negative); Leukocyte Esterase Urine 1+ (Negative); Nitrate Urine Positive (Negative); Protein Urine Neg (Negative); Specific Gravity, Urine 1.005 (1.005-1.030); Squamous Epithelial Cell Urine 0-4 /hpf (0-5); Urine Appearance Cloudy (CLEAR); Urine Color Yellow (Yellow); Urobilinogen Urine Neg (Negative); WBC Urine 40-55 /hpf (0-5); pH Urine 7 (5-7)
[2023-04-02] MEDS: cefTRIAXone 1,000 MG in sodium chloride 0.9% (plus) 50 ML 100 MG IV ×2 (11:48→18:56)
[2023-04-02] MEDS: HYDROmorphone 1 mg/mL INJ 1 mL IVP ×2 (13:20→19:00)
--- NOTE | 2023-04-02 14:39 | PC.PHAR ---
PT IS [facility] BUT KNOWS HIS MEDICATIONS. 04/02/23
[2023-04-03 03:39] VITALS: RESP 22; O2SAT 96
[2023-04-03] MEDS: HYDROmorphone 1 mg/mL INJ 1 mL IVP (03:39)
[2023-04-03 03:42] VITALS: BP 97/62; PULSE 99; RESP 22; O2SAT 95
[2023-04-03 04:00] VITALS: PULSE 80; RESP 18; O2SAT 93
== END 2023-04-03 08:05 | disposition short-term general hospital (02) ==
PROVIDERS: Emergency Provider Family Medicine; PCP Nurse Practitioner
DX: N30.90 Cystitis, unspecified without hematuria; Z87.442 Personal history of urinary calculi; N13.2 Hydronephrosis with renal and ureteral calculous obstruction
CPT/HCPCS: 36415; 51702; 71045; 74176; 80053; 81001; 83690; 85025; 87040; 87077; 87086; 87186; 93005; 96365; 96366; 96375; 96376; 99285; J0696; J1170; J2270; J2405

== ENCOUNTER → 2023-07-06 09:02 | Outpatient (BNVA) | payer OTHER, SELFPAY | PROVIDERS: PCP Nurse Practitioner; Visit Provider Internal Medicine Cardiovascular Disease | DX: I10 Essential (primary) hypertension (principal); R00.1 Bradycardia, unspecified; I49.3 Ventricular premature depolarization; I87.2 Venous insufficiency (chronic) (peripheral); Z87.891 Personal history of nicotine dependence | CPT/HCPCS: 99213 ==

== ENCOUNTER 2023-08-23 15:25 | Outpatient (CLI) | payer OTHER, SELFPAY ==
--- NOTE | 2023-08-23 15:28 | CT_ITS ---
WS: [id number] CT ABDOMEN AND PELVIS NONCONTRAST HISTORY: FOLLOW UP POST LITHOTRIPSY, continued right-sided flank pain. TECHNIQUE: Imaging performed through the abdomen and pelvis. Coronal and sagittal reformats are submi tted. All CT scans at [facility] use at least one of these dose optimization techniques: auto mated exposure control; mA and/or kV adjustment per patient size (includes targeted exams where dose is matched to clinical indication); or iterative reconstruction. DLP: 669.66 mGy.cm COMPARISON: 04/02/2023 Lower thorax: Lung bases are clear. Visualized heart is normal. Small hiatal hernia. Liver: Normal size liver with granulomatous disease. Gallbladder: Normally distended gallbladder with cholelithiasis. Gallbladder is slightly contracted a s compared to the prior exam. No adjacent inflammation. No bile duct dilatation. Pancreas: Normal size and attenuation. Normal pancreatic duct. No pancreatitis or mass. Spleen: Normal size spleen with granulomata. Adrenal glands: Normal. No mass. Right kidney: Mild perinephric stranding. Perinephric stranding has decreased since the prior study. Resolved hydronephrosis. RIGHT ureter is not dilated. No residual calcifications. Left kidney: Mild perinephric stranding. No obstruction. Hypodensity mid region LEFT kidney may be a small cyst. Hounsfield units are low. Aorta: Mild atherosclerosis abdominal aorta with no aneurysm. No free fluid, intraperitoneal air or significant lymphadenopathy. GI tract: Moderately distended stomach. No small bowel obstruction. Normal appendix. Advanced diverti cular disease without acute diverticulitis. Abdominal wall: Negative. No hernia. Pelvis: Well-distended urinary bladder. Lobulated prostate gland encroaching into the bladder. Inguin al canals are patent bilaterally containing fat. Small amount of fluid along the RIGHT inguinal canal . Osseous structures: Posterior L5-S1 lumbar fusion. Mild anterior wedging of L2. No acute fracture. CT/CT kidney stone [id number] IMPRESSION: 1. No residual RIGHT hydroureteronephrosis or renal/ureteral calcifications. 2. Normal appendix. 3. Cholelithiasis in a slightly contracted gallbladder. No adjacent inflammati on. 4. Extensive sigmoid diverticulosis without acute diverticulitis. 5. Markedly enlarged lobulated prostate gland encroaching into the urinary cordelia dder.
== END 2023-08-23 15:26 | disposition home or self-care (01) ==
LOC: RAD 15:25
PROVIDERS: PCP Nurse Practitioner; Visit Provider Nurse Practitioner
DX: Z01.89 Encounter for other specified special examinations (principal); K44.9 Diaphragmatic hernia without obstruction or gangrene; K80.20 Calculus of gallbladder without cholecystitis without obstruction; K57.90 Diverticulosis of intestine, part unspecified, without perforation or abscess without bleeding; N32.89 Other specified disorders of bladder; N40.0 Benign prostatic hyperplasia without lower urinary tract symptoms
CPT/HCPCS: 74176

== ENCOUNTER → 2023-10-12 08:13 | Outpatient (BNVA) | payer OTHER, SELFPAY | PROVIDERS: PCP Nurse Practitioner; Referring Provider Nurse Practitioner; Visit Provider Internal Medicine | DX: N25.81 Secondary hyperparathyroidism of renal origin (principal); E55.9 Vitamin D deficiency, unspecified; N20.9 Urinary calculus, unspecified | CPT/HCPCS: 80053; 82306; 82310; 83970; 99204 ==

== ENCOUNTER 2023-12-25 10:25 | Outpatient (CLI) | payer OTHER, SELFPAY ==
[2023-12-25 11:29] LABS: Calcium 9.5 mg/dL (8.5-10.5)
[2023-12-25 11:48] LABS: 25 Hydroxy Vitamin D 33 ng/mL (30-100); Alanine Aminotransferase 12 U/L (0-41); Albumin Level 4.4 g/dL (3.5-5.2); Alkaline Phosphatase 70 U/L (40-130); Anion Gap 13.1 (5-19); Aspartate Amino Transferase 16 U/L (0-40); Blood Urea Nitrogen 18 mg/dL (8-23); Calcium 9.2 mg/dL (8.5-10.5); Carbon Dioxide 29 mmol/L (22-29); Chloride 102 mmol/L (98-107); Globulin 2.5 g/dL (1.3-4.6); Glucose 101 mg/dL (65-115); Osmolality Calculated 292 mOsm/kg (285-295); Potassium 4.1 mmol/L (3.5-5.1); Sodium 140 mmol/L (136-145); Total Bilirubin 0.8 mg/dL (0.15-1.2); Total Protein 6.9 g/dL (6.6-8.7)
== END 2023-12-25 10:26 | disposition home or self-care (01) ==
LOC: LAB 10:25
PROVIDERS: PCP Nurse Practitioner; Visit Provider Internal Medicine
DX: N25.81 Secondary hyperparathyroidism of renal origin (principal); E55.9 Vitamin D deficiency, unspecified
CPT/HCPCS: 36415; 80053; 82306; 82310; 83970

== ENCOUNTER 2024-07-02 10:51 | Outpatient (CLI) | payer OTHER, SELFPAY ==
--- NOTE | 2024-07-02 11:02 | CT_ITS ---
WS: [id number] CT ABDOMEN WITH AND WITHOUT CONTRAST HISTORY: KIDNEY STONES, ABDOMINAL AND BACK PAIN Contiguous single phase 5 mm axial imaging performed to the abdomen. Oral contrast has not been provided. Coronal and sagittal reformats are submitted. All CT scans at [facility] use at least one of these dose optimization techniques: automated exposure control; mA and/or kV adjustment per patient size (includes targeted exams where dose is matched to clinical indication); or iterative reconstruction. IV CONTRAST: Omnipaque 350; 100 mL IV. Oral contrast: No DLP: 912.37 mGy.cm COMPARISON: 08/23/2023 Lower thorax: Lung bases are clear. Heart is normal size. Small hiatal hernia. Liver/biliary system: Normal size liver with granulomata. Normal portal vein. Gallbladder: Abnormal gallbladder filled with stones. No adjacent pericholecystic fluid. Common bile duct is not dilated. Pancreas: Normal size pancreas with mild fatty replacement. There is a calcification in the medial pancreatic head that was present on the prior study also. Calcification is unchanged since 03/09/2021. Spleen: Granulomata. Normal size. Adrenal glands: Normal. Right kidney: Normal. Left kidney: No obstruction. Cortical cysts posterior mid kidney measures 1.5 cm. Additional scattered too small to characterize hypodensities. No hydronephrosis. Aorta: Mild atherosclerosis with no aneurysm. No ascites or adenopathy. Visualized GI tract within the upper abdomen negative for acute process. There are few diverticula in the visualized splenic flexure and descending colon. Abdominal wall: Unremarkable abdominal wall. No hernia. Visualized osseous structures: Advanced degenerative changes in the lumbar spine. Posterior lumbosacral fusion. CT/CT abdomen wo/w con [id number] IMPRESSION: 1. No renal obstruction. 2. Cortical cyst LEFT kidney and too small to characterize hypodensities. 3. Atherosclerosis aorta. 4. Cholelithiasis without acute cholecystitis. 5. No ascites or adenopathy. 6. Hiatal hernia.
[2024-07-02 11:48] LABS: Blood Urea Nitrogen 18 mg/dL (8-23)
[2024-07-02] MEDS: iohexol 350 mg/mL 500 mL Btl (per mL) IV (12:01)
== END 2024-07-02 10:52 | disposition home or self-care (01) ==
PROVIDERS: PCP Nurse Practitioner; Visit Provider Nurse Practitioner
DX: Z01.89 Encounter for other specified special examinations (principal); N28.1 Cyst of kidney, acquired; R93.422 Abnormal radiologic findings on diagnostic imaging of left kidney; I70.0 Atherosclerosis of aorta; K80.20 Calculus of gallbladder without cholecystitis without obstruction; K44.9 Diaphragmatic hernia without obstruction or gangrene; K75.3 Granulomatous hepatitis, not elsewhere classified; K86.89 Other specified diseases of pancreas; D73.89 Other diseases of spleen; K57.30 Diverticulosis of large intestine without perforation or abscess without bleeding
CPT/HCPCS: 74170; 82565; 84520

== ENCOUNTER → 2024-08-14 08:45 | Outpatient (BNVA) | payer OTHER, SELFPAY | PROVIDERS: PCP Nurse Practitioner; Visit Provider Student in an Organized Health Care Education/Training Program | DX: K82.9 Disease of gallbladder, unspecified (principal); R03.0 Elevated blood-pressure reading, without diagnosis of hypertension | CPT/HCPCS: 99203 ==

== ENCOUNTER 2024-11-12 12:24 | Outpatient (CLI) | payer OTHER, SELFPAY ==
--- NOTE | 2024-11-12 12:32 | MR_ITS ---
WS: [id number] MRI LUMBAR SPINE NONCONTRAST HISTORY: LUMBAR RADICULOPATHY-R LEG PAIN COMPARISON: 01/19/2020 TECHNIQUE: Sagittal and axial multisequence imaging is submitted. Mild increase in cervical lordosis and thoracic kyphosis. L1, L2 and L3 retrolisthesis by 4 to 5 mm. Mild anterior wedging of L2 is stable. No acute marrow edema or fracture. Posterior lumbar fusion at L5-S1 is stable. Disc spaces are all narrowed and desiccated. Conus terminates normally at L1-2 disc level. L1-L2: Diffuse osteophytic ridging with facet disease. Posterior laminectomy defect. Moderate bilateral foraminal stenosis, LEFT greater than RIGHT. L2-L3: Diffuse annular disc bulging, osteophytic ridging with facet and ligamentum flavum hypertrophy. Mild central, subarticular recess and bilateral foraminal stenosis. L3-L4: Diffuse annular disc bulging, osteophytic ridging with moderate ligamentum flavum and facet arthritis. Small central disc protrusion. Mild progression of central and subarticular recess stenosis since the prior study. Complete effacement of fat in the LEFT foramen. LEFT foraminal disc protrusion is likely. Moderate to severe stenosis RIGHT foramen. L4-L5: Diffuse disc bulging, osteophytic ridging and facet arthritis. Posterior laminectomy defects. Moderate bilateral foraminal stenosis. L5-S1: Large posterior laminectomy defect. Moderate bilateral foraminal stenosis, RIGHT greater than LEFT. LEFT renal cyst 1.8 cm. MR/MR lumbar spine wo con* [id number] IMPRESSION: 1. Progression of central, subarticular recess and foraminal stenosis at L3-4 since the prior study. Small central disc protrusion. Complete effacement of fa t in the LEFT foramen. Moderate to severe RIGHT foraminal stenosis. There is si gnificant disc contact on the L3 and L4 nerve roots. 2. Moderate bilateral foraminal stenosis at L4-5 and L5-S1 without significant progression. 3. Moderate bilateral foraminal stenosis at L1-2, LEFT greater than RIGHT. 4. L2-3: Mild central, subarticular recess and moderate ligamentum flavum and facet disease. 5. Retrolisthesis of L1, L2 and L3.
== END 2024-11-12 12:25 | disposition home or self-care (01) ==
LOC: RAD 12:24
PROVIDERS: PCP Nurse Practitioner; Visit Provider Nurse Practitioner
DX: M51.16 Intervertebral disc disorders with radiculopathy, lumbar region (principal); M48.061 Spinal stenosis, lumbar region without neurogenic claudication; M51.26 Other intervertebral disc displacement, lumbar region; M79.89 Other specified soft tissue disorders; M99.73 Connective tissue and disc stenosis of intervertebral foramina of lumbar region; M48.07 Spinal stenosis, lumbosacral region; M43.16 Spondylolisthesis, lumbar region
CPT/HCPCS: 72148

== ENCOUNTER → 2024-12-16 13:39 | Outpatient (BNVA) | payer OTHER, SELFPAY | PROVIDERS: PCP Nurse Practitioner; Visit Provider Orthopaedic Surgery | DX: M48.062 Spinal stenosis, lumbar region with neurogenic claudication (principal) | CPT/HCPCS: 72110; 99213 ==

== ENCOUNTER 2025-01-05 08:17 | Outpatient (RCR) | payer OTHER, SELFPAY | END 2025-01-16 23:59 | disposition home or self-care (01) | LOC: SPT 08:17 | PROVIDERS: Visit Provider Orthopaedic Surgery | DX: M54.9 Dorsalgia, unspecified (principal) | CPT/HCPCS: 97110; 97161 ==

== ENCOUNTER 2025-01-17 05:00 | Outpatient (RCR) | payer OTHER, SELFPAY | END 2025-02-15 23:59 | disposition home or self-care (01) | LOC: SPT 05:00 | PROVIDERS: Visit Provider Orthopaedic Surgery | DX: M54.9 Dorsalgia, unspecified (principal) | CPT/HCPCS: 20560; 97110 ==

== ENCOUNTER 2025-02-16 06:30 | Outpatient (RCR) | payer OTHER, SELFPAY | END 2025-02-17 09:39 | disposition home or self-care (01) | LOC: SPT 06:30 | PROVIDERS: Visit Provider Orthopaedic Surgery | DX: M54.9 Dorsalgia, unspecified (principal) | CPT/HCPCS: 97110 ==

== ENCOUNTER → 2025-03-10 12:39 | Outpatient (BNVA) | payer OTHER, SELFPAY | PROVIDERS: Visit Provider Orthopaedic Surgery | DX: M48.062 Spinal stenosis, lumbar region with neurogenic claudication (principal) | CPT/HCPCS: 99213 ==